=== PATIENT | male | born 1980 | race Caucasian/White ===

== ENCOUNTER → 2020-04-17 08:53 | Outpatient (BNVA) | payer OTHER, SELFPAY | PROVIDERS: PCP Nurse Practitioner; Referring Provider Nurse Practitioner; Visit Provider Nurse Practitioner Psychiatric/Mental Health | DX: Z76.89 Persons encountering health services in other specified circumstances (principal) ==

== ENCOUNTER → 2020-04-24 08:49 | Outpatient (BNVA) | payer OTHER, SELFPAY | PROVIDERS: Visit Provider Nurse Practitioner Psychiatric/Mental Health | DX: Z76.89 Persons encountering health services in other specified circumstances (principal) ==

== ENCOUNTER → 2020-05-01 08:46 | Outpatient (BNVA) | payer OTHER, SELFPAY | PROVIDERS: Visit Provider Nurse Practitioner Psychiatric/Mental Health | DX: F11.99 Opioid use, unspecified with unspecified opioid-induced disorder (principal); Z79.899 Other long term (current) drug therapy | CPT/HCPCS: 80305 ==

== ENCOUNTER 2020-05-13 08:57 | Outpatient (REF) | payer OTHER, SELFPAY | END 2020-05-13 08:58 | disposition home or self-care (01) | LOC: HO.LAB 08:57 | PROVIDERS: Visit Provider Internal Medicine | DX: Z20.828 Contact with and (suspected) exposure to other viral communicable diseases (principal) | CPT/HCPCS: 87635 ==

== ENCOUNTER → 2020-05-15 08:45 | Outpatient (BNVA) | payer OTHER, SELFPAY | PROVIDERS: Visit Provider Nurse Practitioner Psychiatric/Mental Health | DX: F11.20 Opioid dependence, uncomplicated (principal) | CPT/HCPCS: 80305 ==

== ENCOUNTER → 2020-05-29 08:42 | Outpatient (BNVA) | payer OTHER, SELFPAY | PROVIDERS: Visit Provider Nurse Practitioner Psychiatric/Mental Health | DX: F11.99 Opioid use, unspecified with unspecified opioid-induced disorder (principal) | CPT/HCPCS: 80305 ==

== ENCOUNTER → 2020-06-19 09:01 | Outpatient (BNVA) | payer OTHER, SELFPAY | PROVIDERS: Visit Provider Nurse Practitioner Psychiatric/Mental Health | DX: Z76.89 Persons encountering health services in other specified circumstances (principal) ==

== ENCOUNTER 2020-06-25 09:22 | Outpatient (REF) | payer OTHER, SELFPAY | END 2020-06-25 09:23 | disposition home or self-care (01) | LOC: HO.LAB 09:22 | PROVIDERS: PCP Nurse Practitioner Family; Visit Provider Internal Medicine | DX: Z20.828 Contact with and (suspected) exposure to other viral communicable diseases (principal) | CPT/HCPCS: C9803; U0003 ==

== ENCOUNTER → 2020-07-03 10:55 | Outpatient (BNVA) | payer OTHER, SELFPAY | PROVIDERS: Visit Provider Nurse Practitioner Psychiatric/Mental Health | DX: Z76.89 Persons encountering health services in other specified circumstances (principal) ==

== ENCOUNTER → 2020-07-17 10:29 | Outpatient (BNVA) | payer OTHER, SELFPAY | PROVIDERS: Visit Provider Nurse Practitioner Psychiatric/Mental Health | DX: Z76.89 Persons encountering health services in other specified circumstances (principal) ==

== ENCOUNTER → 2020-08-14 13:07 | Outpatient (BNVA) | payer OTHER, SELFPAY | PROVIDERS: Visit Provider Nurse Practitioner Psychiatric/Mental Health ==

== ENCOUNTER → 2020-08-28 13:04 | Outpatient (BNVA) | payer OTHER, SELFPAY | PROVIDERS: PCP Nurse Practitioner Family; Visit Provider Nurse Practitioner Psychiatric/Mental Health ==

== ENCOUNTER → 2020-09-18 13:05 | Outpatient (BNVA) | payer OTHER, SELFPAY | PROVIDERS: PCP Nurse Practitioner Family; Visit Provider Nurse Practitioner Psychiatric/Mental Health ==

== ENCOUNTER → 2020-10-09 08:47 | Outpatient (BNVA) | payer OTHER, SELFPAY | PROVIDERS: PCP Nurse Practitioner Family; Visit Provider Nurse Practitioner Psychiatric/Mental Health | DX: F11.21 Opioid dependence, in remission (principal) | CPT/HCPCS: 80305 ==

== ENCOUNTER → 2020-10-23 16:04 | Outpatient (BNVA) | payer OTHER, SELFPAY | PROVIDERS: PCP Nurse Practitioner Family; Visit Provider Nurse Practitioner Psychiatric/Mental Health | DX: Z51.81 Encounter for therapeutic drug level monitoring (principal); F11.21 Opioid dependence, in remission | CPT/HCPCS: 80305 ==

== ENCOUNTER 2020-11-13 13:40 | Emergency (ER) | payer OTHER, SELFPAY ==
--- NOTE | ~2020-11-13 | XR_ITS ---
EXAMINATION: XR HAND, RIGHT CLINICAL INFORMATION: Index finger foreign body. COMPARISON: None TECHNIQUE: Three views of the right hand. FINDINGS: There is a 7.7 x 4.9 cm plate-like metallic foreign body projected over the 2nd digit on the AP projections. On the lateral projection, there is a screw which appears to be penetrating/extending through the soft tissues into the base of the 2nd middle phalanx. On the lateral projection, the proximal aspect of the metallic plate abuts the palmar soft tissues at the level of the proximal phalanx, and soft tissue injury/penetration into the soft tissues cannot be excluded. The remainder of the bones appear unremarkable. Ulnar negative variance. XR/XR hand RT 2V IMPRESSION: 7.7 x 4.9 cm plate-like metallic foreign body projected over the 2nd digit. There is a screw penetrating through the soft tissues into the base of the 2nd middle phalanx. The plate proximally abuts the palmar soft tissues of the proximal digit, and extension into the soft tissue/soft tissue injury cannot be excluded. Please clinically correlate.
[2020-11-13 14:09] VITALS: BP 134/84; PULSE 82; RESP 16; TEMP 36.8; O2SAT 96; BMI 36.6
--- NOTE | 2020-11-13 14:28 | ED.EXTPRO ---
HPI - Extremity Problem General Chief complaint: Extremity Injury, Upper <NUHA Claros - Last Filed: 11/13/20 19:35> Stated complaint: HAND INJ <NUHA Claros Last Filed: 11/13/20 19:35> Time Seen by Provider: 11/13/20 14:17 <NUHA Claros Last Filed: 11/13/20 19:35> Source: patient <NUHA Claros Last Filed: 11/13/20 19:35> Mode of arrival: ambulatory <NUHA Claros Last Filed: 11/13/20 19:35> Limitations: no limitations <NUHA Claros Last Filed: 11/13/20 19:35> History of Present Illness HPI Narrative: Patient presents to ED for screw drilled into right index finger by accident. Patient was doing some work on the ceiling and accidently drilled the nail into his finger. Patient states no pain. Patient unknown when last time he had tetanus injection. <NUHA Claros Last Filed: 11/13/20 19:35> Related Data Home medications: Home Medications Medication Instructions Recorded Confirmed sertraline 100 mg tablet 100 mg PO DAILY 04/12/20 09/18/20 valsartan 80 mg tablet 80 mg PO DAILY 04/12/20 09/18/20 Previous Rx's Medication Instructions Recorded cephalexin 500 mg PO QID #28 cap 11/13/20 doxycycline hyclate 100 mg PO BID #14 cap 11/13/20 ibuprofen 400 mg PO Q6H PRN #28 tab 11/13/20 buprenorphine 2 mg-naloxone 0.5 mg 3 film BUCCAL DAILY 21 Days #63 ea 12/04/20 sublingual film <NUHA Claros Last Filed: 11/13/20 19:35> Allergies/Adverse reactions: Allergies Allergy/AdvReac Type Severity Reaction Status Date / Time No Known Allergies Allergy Verified 10/09/20 08:52 <NUHA Claros Last Filed: 11/13/20 19:35> Review of Systems Review of Systems: Yes all other systems are reviewed and are negative <NUHA Claros Last Filed: 11/13/20 19:35> Constitutional: Constitutional: Reports as per HPI and Reports no additional constitutional complaints <NUHA Claros Last Filed: 11/13/20 19:35> Eyes: Eyes: Reports as per HPI and Reports no additional eye complaints <NUHA Claros Last Filed: 11/13/20 19:35> ENT: Reports system reviewed and no additional complaints, except as documented and Reports as per HPI <NUHA Claros Last Filed: 11/13/20 19:35> Cardiovascular: Cardiovascular: Reports as per HPI and Reports no additional cardiovascular complaints <NUHA Claros Last Filed: 11/13/20 19:35> Respiratory: Respiratory: Reports as per HPI and Reports no additional respiratory complaints <NUHA Claros Last Filed: 11/13/20 19:35> Gastrointestinal: Gastrointestinal: Reports as per HPI and Reports no additional gastrointestinal complaints <NUHA Claros Last Filed: 11/13/20 19:35> Genitourinary: Genitourinary: Reports no additional male genitourinary complaints and Reports as per HPI <NUHA Claros Last Filed: 11/13/20 19:35> Musculoskeletal: Musculoskeletal: Reports no additional musculoskeletal complaints and Reports as per HPI <NUHA Claros Last Filed: 11/13/20 19:35> Comments: Grew in right index finger. <NUHA Claros Last Filed: 11/13/20 19:35> Neurologic: Reports system reviewed and no additional complaints, except as documented and Reports as per HPI <NUHA Claros Last Filed: 11/13/20 19:35> Psychiatric: Psychiatric: Reports no additional psychiatric complaints and Reports as per HPI <NUHA Claros Last Filed: 11/13/20 19:35> [facility] Past Medical History Medical History: Medical History (Updated 11/14/20 @ 00:00 by Birgit Ceja) Opioid use disorder <NUHA Claros Last Filed: 11/13/20 19:35> Surgical History: Surgical History History of removal of cyst <NUHA Claros Last Filed: 11/13/20 19:35> Family History Family History: Family History (Updated 04/12/20 @ 13:51 by LEONOR Ugarte) Mother No problems noted. Father No problems noted. Sister No problems noted. Sister No problems noted. <NUHA Claros - Last Filed: 11/13/20 19:35> Physical Exam Vital Signs: Vital Signs: Last Vital Signs Temp 98.2 F 11/13/20 14:09 Pulse 82 11/13/20 14:09 Resp 16 11/13/20 14:09 BP 134/84 11/13/20 14:09 Pulse Ox 96 11/13/20 14:09 Body Mass Index 36.6 <NUHA Claros Last Filed: 11/13/20 19:35> Vital Signs: Last Vital Signs Temp 98.2 F 11/13/20 14:09 Pulse 82 11/13/20 14:09 Resp 16 11/13/20 14:09 BP 134/84 11/13/20 14:09 Pulse Ox 96 11/13/20 14:09 Body Mass Index 36.6 <Armand Guthrie MD - Last Filed: 12/08/20 20:38> Const: General: cooperative, healthy appearing, comfortable and no acute distress <NUHA Claros Last Filed: 11/13/20 19:35> Orientation/consciousness: patient oriented x3 <NUHA Claros Last Filed: 11/13/20 19:35> HENMT: Head: Yes normal to inspection, Yes No palpable skull fracture present, Yes normocephalic and No atraumatic <NUHA lCaros Last Filed: 11/13/20 19:35> Eyes: General: appearance normal, both eyes and all related structures <NUHA Claros Last Filed: 11/13/20 19:35> Neck: Neck: Yes normal visual inspection, Yes full ROM, Yes no lymphadenopathy, Yes no meningeal signs, Yes trachea midline, Yes supple and No tender <NUHA Claros Last Filed: 11/13/20 19:35> Chest: Chest palpation & inspection: normal inspection of the chest and normal palpation of entire chest wall <NUHA Claros Last Filed: 11/13/20 19:35> Resp: Effort & Inspection: normal respiratory effort and able to speak in complete sentences <NUHA Claros Last Filed: 11/13/20 19:35> Auscultation: clear to auscultation bilaterally <NUHA Claros Last Filed: 11/13/20 19:35> Cardio: Jugular venous distension: no JVD <NUHA Claros Jayshree Last Filed: 11/13/20 19:35> Heart sounds: S1 normal heart sound present and S2 normal heart sound present <Hilario Shravan, PA Last Filed: 11/13/20 19:35> GI: Inspection: Yes normal to inspection and No abdominal wall ecchymosis <NUHA Claros Last Filed: 11/13/20 19:35> Palpation (GI): Soft to palpation, not firm, nontender, no guarding and not rigid <NUHA Claros Last Filed: 11/13/20 19:35> : General: No CVA tenderness and Yes no CVA tenderness <NUHA Claros Last Filed: 11/13/20 19:35> Back/Spine/Pelvis: Back: no CVA tenderness, No CVA tenderness and No back tenderness <NUHA Claros Last Filed: 11/13/20 19:35> Skin: General skin exam: no rashes or lesions noted and elasticity normal <Hilario Shravan, PA Last Filed: 11/13/20 19:35> Neuro: General: patient oriented x3, no meningeal signs and CN's II-XI intact bilaterally <Hilario Shravan, PA Last Filed: 11/13/20 19:35> Cranial nerves: Yes CN's II-XII intact bilaterally <NUHA Claros Last Filed: 11/13/20 19:35> Extrem: Other: Right index finger positive for screw in right index finger. <NUHA Claros Jayshree Last Filed: 11/13/20 19:35> Psych: Appearance: grossly normal, well kempt and not disheveled <NUHA Claros Last Filed: 11/13/20 19:35> Course Course Course Narrative: X-ray shows it is drilled drilled into base of 2nd finger phalanx base. Tetanus ordered and p.o. medication. Will contact orthopedic/hand surgeon to see function temp to pull screw due to it being drilled into the bone or if should go to the OR. <NUHA Claros - Last Filed: 11/13/20 19:35> I have reviewed the chart <Armand Guthrie MD - Last Filed: 12/08/20 20:38> Reevaluation(s) Reevaluation #1: Spoke with Dr. Menard of hand surgeon who states screw could be removed in the ER. After removal she recommends washout of wound and also 1 dose of IV antibiotic. She also recommend patient should be discharged with antibiotics. <NUHA Claros - Last Filed: 11/13/20 19:35> Reevaluation #2: Index finger anesthetized with 6 mL of lidocaine 2%. Digital block was done. Pliers were used to twist screw and a counter clockwise motion until it was loose enough to be pulled out. Angiocath was placed in normal saline syringes and placed directly into wound for washout. Then wound was cleaning with normal sterile saline and Betadine iodine. Patient ordered tetanus. Screw removal was successful. Patient will be given 1 dose of ceftriaxone and then discharged. <NUHA Claros - Last Filed: 11/13/20 19:35> MDM - Extremity (Nontraumatic) MDM Narrative Medical decision making narrative: Foreign body removal. <NUHA Claros - Last Filed: 11/13/20 19:35> Discharge Plan Discharge Clinical Impression: Foreign body finger <NUHA Claros - Last Filed: 11/13/20 19:35> Patient Disposition: Home, Self-Care <NUHA Claros - Last Filed: 11/13/20 19:35> Instructions: Soft Tissue Foreign Body (ED) <NUHA Claros - Last Filed: 11/13/20 19:35> Additional Instructions: Return to the ED immediately for redness, swelling, pitting edema, pus discharge, foul odor, development of red streak going down arm, fever, chills, bluish discoloration of fingertips, or any other concerning symptoms. Please call Dr. Menard tomorrow to schedule an appointment for next week. Take antibiotics as prescribed. 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 Patient started on antibiotics.) <NUHA Claros - Last Filed: 11/13/20 19:35> Interventions: ED Discharge Assessment Last Done: 11/13/20 17:17 <NUHA Claros - Last Filed: 11/13/20 19:35> Discharge Date/Time: 11/13/20 17:51 <NUHA Claros - Last Filed: 11/13/20 19:35> Print Language: Vietnamese <NUHA Claros - Last Filed: 11/13/20 19:35>
[2020-11-13] MEDS: Ibuprofen 800 MG TABLET PO (14:45)
[2020-11-13] MEDS: Diphth,Pertus(ACell),Tet Adult 0.5 ML SYRINGE IM (14:46)
[2020-11-13] MEDS: cefTRIAXone sodium 1 GM in 0.9 % Sodium Chloride 50 ML IV (16:38)
[2020-11-13] MEDS: Lidocaine HCl 2 % MPF 5 ML VIAL INFILTRATI ×2 (16:39)
== END 2020-11-13 17:51 | disposition home or self-care (01) ==
PROVIDERS: Emergency Provider Emergency Medicine; PCP Nurse Practitioner Family
DX: S61.240A Puncture wound with foreign body of right index finger without damage to nail, initial encounter (principal); M79.644 Pain in right finger(s); Y28.9XXA Contact with unspecified sharp object, undetermined intent, initial encounter; Y93.9 Activity, unspecified; Y92.009 Unspecified place in unspecified non-institutional (private) residence as the place of occurrence of the external cause; Y99.9 Unspecified external cause status; Z79.899 Other long term (current) drug therapy
CPT/HCPCS: 10120; 73120; 90471; 90715; 96360; 96361; 99284; J0696

== ENCOUNTER → 2020-12-04 15:54 | Outpatient (BNVA) | payer OTHER, SELFPAY | PROVIDERS: PCP Nurse Practitioner Family; Visit Provider Nurse Practitioner Psychiatric/Mental Health | DX: F11.21 Opioid dependence, in remission (principal) | CPT/HCPCS: 80305 ==

== ENCOUNTER → 2020-12-24 13:17 | Outpatient (BNVA) | payer OTHER, SELFPAY | PROVIDERS: Visit Provider Nurse Practitioner Psychiatric/Mental Health | DX: Z51.81 Encounter for therapeutic drug level monitoring (principal) | CPT/HCPCS: 80305 ==

== ENCOUNTER → 2021-01-08 13:24 | Outpatient (BNVA) | payer OTHER, SELFPAY | PROVIDERS: Visit Provider Nurse Practitioner Psychiatric/Mental Health | DX: F11.21 Opioid dependence, in remission (principal) | CPT/HCPCS: 80305 ==

== ENCOUNTER → 2021-02-05 12:05 | Outpatient (BNVA) | payer OTHER, SELFPAY | PROVIDERS: Visit Provider Nurse Practitioner Psychiatric/Mental Health | DX: F11.21 Opioid dependence, in remission (principal); Z51.81 Encounter for therapeutic drug level monitoring | CPT/HCPCS: 80305 ==

== ENCOUNTER → 2021-03-05 11:06 | Outpatient (BNVA) | payer OTHER, SELFPAY | PROVIDERS: Visit Provider Nurse Practitioner Psychiatric/Mental Health | DX: F11.21 Opioid dependence, in remission (principal); Z87.891 Personal history of nicotine dependence; Z51.81 Encounter for therapeutic drug level monitoring | CPT/HCPCS: 80305 ==

== ENCOUNTER → 2021-04-30 11:13 | Outpatient (BNVA) | payer OTHER, SELFPAY | PROVIDERS: Visit Provider Nurse Practitioner Psychiatric/Mental Health | DX: F11.21 Opioid dependence, in remission (principal) | CPT/HCPCS: 80305 ==

== ENCOUNTER → 2021-06-25 13:35 | Outpatient (BNVA) | payer OTHER, SELFPAY | PROVIDERS: Visit Provider Nurse Practitioner Psychiatric/Mental Health | DX: F11.21 Opioid dependence, in remission (principal); Z51.81 Encounter for therapeutic drug level monitoring; Z79.899 Other long term (current) drug therapy | CPT/HCPCS: 80305 ==

== ENCOUNTER → 2021-08-20 13:27 | Outpatient (BNVA) | payer OTHER, SELFPAY | PROVIDERS: Visit Provider Nurse Practitioner Psychiatric/Mental Health | DX: F11.20 Opioid dependence, uncomplicated (principal) | CPT/HCPCS: 80305 ==

== ENCOUNTER → 2021-10-15 13:52 | Outpatient (BNVA) | payer OTHER, SELFPAY | PROVIDERS: Visit Provider Nurse Practitioner Psychiatric/Mental Health | DX: F11.21 Opioid dependence, in remission (principal); Z51.81 Encounter for therapeutic drug level monitoring; Z79.899 Other long term (current) drug therapy | CPT/HCPCS: 80305 ==

== ENCOUNTER → 2021-12-10 09:51 | Outpatient (BNVA) | payer OTHER, SELFPAY | PROVIDERS: Visit Provider Nurse Practitioner Psychiatric/Mental Health | DX: Z51.81 Encounter for therapeutic drug level monitoring (principal); F11.21 Opioid dependence, in remission | CPT/HCPCS: 80305 ==

== ENCOUNTER → 2022-05-24 08:59 | Outpatient (BNVA) | payer OTHER, SELFPAY | PROVIDERS: PCP Nurse Practitioner Family; Visit Provider Nurse Practitioner Psychiatric/Mental Health | DX: F11.21 Opioid dependence, in remission (principal); Z51.81 Encounter for therapeutic drug level monitoring; Z79.899 Other long term (current) drug therapy | CPT/HCPCS: 80305 ==

== ENCOUNTER → 2022-08-23 08:52 | Outpatient (BNVA) | payer OTHER, SELFPAY | PROVIDERS: PCP Nurse Practitioner Family; Visit Provider Nurse Practitioner Psychiatric/Mental Health | DX: Z51.81 Encounter for therapeutic drug level monitoring (principal); F11.21 Opioid dependence, in remission | CPT/HCPCS: 80305 ==

== ENCOUNTER → 2022-11-08 09:07 | Outpatient (BNVA) | payer OTHER, SELFPAY | PROVIDERS: PCP Nurse Practitioner Family; Visit Provider Nurse Practitioner Psychiatric/Mental Health | DX: F11.20 Opioid dependence, uncomplicated (principal) | CPT/HCPCS: 80305 ==

== ENCOUNTER 2023-01-31 09:00 | Outpatient (AMB) | payer OTHER, SELFPAY ==
--- NOTE | 2023-01-31 09:02 | A.OFFVIS_ITS ---
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 Reports that he continues to do well with recovery, 3 year anniversary coming up in February. Reflecting on all of the positive things in his life that continue to motivate him towards recovery. Still engaged with therapy. Started a new job. Overall doing well. [facility] Surgical History History of removal of cyst Family History Mother No problems noted. Father No problems noted. Sister No problems noted. Sister No problems noted. Social History (Updated 01/08/21 @ 13:40 by Rea Goss CMA) Patient Tobacco Use Status: Former Tobacco user Review of Systems Const Reports as per HPI and Reports no additional complaints Physical Exam Vital Signs: Last Vital Signs Pulse 86 01/31/23 09:13 BP 136/84 01/31/23 09:13 Pulse Ox 95 01/31/23 09:13 Oxygen Delivery Method Room Air 01/31/23 09:13 Const General: cooperative Nutritional Appearance: average body habitus Orientation/consciousness: oriented to person and patient oriented x3 Limitations: no limitations Neuro General: oriented to person and patient oriented x3 Psych Appearance: grossly normal and well kempt Mental Status: mental status grossly normal Speech and movement: Normal speech and movement present Affect: normal affect Attitude: cooperative Thought process: Normal thought process present Thought content: Normal thought content present Insight: Good insight present (Psych) Results AMB 14 Panel Urine Drug Screen Urine Marijuana (THC) Negative Last Edit by Rhoda Hurd CMA on 01/31/23 09:21 Urine Cocaine Negative Last Edit by Rhoda Hurd CMA on 01/31/23 09:21 Urine Morphine Negative Last Edit by Rhoda Hurd CMA on 01/31/23 09:21 Urine Methamphetamine Negative Last Edit by Rhoda Hurd CMA on 01/31/23 09:21 Urine Amphetamine Negative Last Edit by Rhoda Hurd CMA on 01/31/23 09:2 1 Urine Benzodiazepine Negative Last Edit by Rhoda Hurd CMA on 01/31/23 09:21 Urine Barbiturates Negative Last Edit by Rhoda Hurd CMA on 01/31/23 09: 21 Urine Methadone Negative Last Edit by Rhoda Hurd CMA on 01/31/23 09:21 Urine Buprenorphine Positive Last Edit by Rhoda Hurd CMA on 01/31/23 09 :21 Urine Tricyclic Antidepressant Negative Last Edit by Rhoda Hurd CMA on 01/31/23 09:21 Urine MDMA Negative Last Edit by Rhoda Hurd CMA on 01/31/23 09:21 Urine Oxycodone Negative Last Edit by Rhoda Hurd CMA on 01/31/23 09:21 Urine Phencyclidine Negative Last Edit by Rhoda Hurd CMA on 01/31/23 09 :21 Urine Propoxyphene Negative Last Edit by Rhoda Hurd CMA on 01/31/23 09: 21 Results Reviewed Results Reviewed: Laboratory Last Values POC Urine Buprenorphine Positive 01/31/23 09:06 POC Urine Morphine Negative 01/31/23 09:06 POC Urine Oxycodone Negative 01/31/23 09:06 POC Urine Methadone Negative 01/31/23 09:06 POC Urine Propoxyphene Negative 01/31/23 09:06 POC Urine Barbiturates Negative 01/31/23 09:06 POC U Tricyclic Antidpr Negative 01/31/23 09:06 POC Urine PCP Negative 01/31/23 09:06 POC Ur Amphetamines Negative 01/31/23 09:06 POC Ur Methamphetamine Negative 01/31/23 09:06 POC Urine MDMA Negative 01/31/23 09:06 POC Ur Benzodiazepine Negative 01/31/23 09:06 POC Urine Cocaine Negative 01/31/23 09:06 POC Ur Marijuana (THC) Negative 01/31/23 09:06 Assessment & Plan Assessment & Plan (1) Opioid use disorder, severe, in sustained remission: Code(s): F11.21 - Opioid dependence, in remission Plan: * Continue Suboxone at current dose * Follow-up 3 months * Encouraged to call office with any questions or concerns prior to next appointment Orders: Orders Liver Panel Today Z79.899 - Other retirement (current) drug therapy AMB 14 Panel Urine Drug Screen Today Z51.81 - Encounter for therapeutic drug level monitoring Coding Level of Care Code Est Pt Level 3 (22869) Diagnoses Opioid use disorder, severe, in sustained remission F11.21
[2023-01-31 09:13] VITALS: BP 136/84; PULSE 86; O2SAT 95
== END 2023-01-31 09:39 | disposition home or self-care (01) ==
LOC: HO.HCC 09:01
PROVIDERS: PCP Nurse Practitioner Family; Visit Provider Nurse Practitioner Psychiatric/Mental Health
DX: F11.21 Opioid dependence, in remission (principal); Z51.81 Encounter for therapeutic drug level monitoring
CPT/HCPCS: 99213

== ENCOUNTER → 2023-01-31 09:00 | Outpatient (BNVA) | payer OTHER, SELFPAY | PROVIDERS: PCP Nurse Practitioner Family; Visit Provider Nurse Practitioner Psychiatric/Mental Health | DX: F11.21 Opioid dependence, in remission (principal); Z51.81 Encounter for therapeutic drug level monitoring; Z79.899 Other long term (current) drug therapy | CPT/HCPCS: 80305 ==

== ENCOUNTER 2023-04-19 15:44 | Outpatient (AMB) | payer OTHER, SELFPAY ==
--- NOTE | 2023-04-19 15:47 | MHC.OFFVIS ---
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 strong family supports. considering taper and eventual discontinuation of suboxone. Discussed methods including Sublocade as a method to d/c bupe [facility] Surgical History History of removal of cyst Family History Mother No problems noted. Father No problems noted. Sister No problems noted. Sister No problems noted. Social History (Updated 01/08/21 @ 13:40 by Rea Goss CMA) Patient Tobacco Use Status: Former Tobacco user Review of Systems Const Reports as per HPI and Reports no additional complaints Physical Exam Vital Signs: Last Vital Signs Pulse 74 04/19/23 15:55 BP 128/86 04/19/23 15:55 Pulse Ox 96 04/19/23 15:55 Oxygen Delivery Method Room Air 04/19/23 15:55 Const General: cooperative Nutritional Appearance: average body habitus Orientation/consciousness: oriented to person and patient oriented x3 Limitations: no limitations Neuro General: oriented to person and patient oriented x3 Psych Appearance: grossly normal and well kempt Mental Status: mental status grossly normal Speech and movement: Normal speech and movement present Affect: normal affect Attitude: cooperative Thought process: Normal thought process present Thought content: Normal thought content present Insight: Good insight present (Psych) Results AMB 14 Panel Urine Drug Screen Urine Marijuana (THC) Negative Last Edit by Rhoda Hurd CMA on 04/19/23 15:57 Urine Cocaine Negative Last Edit by Rhoda Hurd CMA on 04/19/23 15:57 Urine Morphine Negative Last Edit by Rhoda Hurd CMA on 04/19/23 15:57 Urine Methamphetamine Negative Last Edit by Rhoda Hurd CMA on 04/19/23 15:57 Urine Amphetamine Negative Last Edit by Rhoda Hurd CMA on 04/19/23 15:57 Urine Benzodiazepine Negative Last Edit by Rhoda Hurd CMA on 04/19/23 15:57 Urine Barbiturates Negative Last Edit by Rhoda Hurd CMA on 04/19/23 15:57 Urine Methadone Negative Last Edit by Rhoda Hurd CMA on 04/19/23 15:57 Urine Buprenorphine Positive Last Edit by Rhoda Hurd CMA on 04/19/23 15:57 Urine Tricyclic Antidepressant Negative Last Edit by Rhoda Hurd CMA on 04/19/23 15:57 Urine MDMA Negative Last Edit by Rhoda Hurd CMA on 04/19/23 15:57 Urine Oxycodone Negative Last Edit by Rhoda Hurd CMA on 04/19/23 15:57 Urine Phencyclidine Negative Last Edit by Rhoda Hurd CMA on 04/19/23 15:57 Urine Propoxyphene Negative Last Edit by Rhoda Hurd CMA on 04/19/23 15:57 Results Reviewed Results Reviewed: Laboratory Last Values POC Urine Buprenorphine Positive 04/19/23 15:56 POC Urine Morphine Negative 04/19/23 15:56 POC Urine Oxycodone Negative 04/19/23 15:56 POC Urine Methadone Negative 04/19/23 15:56 POC Urine Propoxyphene Negative 04/19/23 15:56 POC Urine Barbiturates Negative 04/19/23 15:56 POC U Tricyclic Antidpr Negative 04/19/23 15:56 POC Urine PCP Negative 04/19/23 15:56 POC Ur Amphetamines Negative 04/19/23 15:56 POC Ur Methamphetamine Negative 04/19/23 15:56 POC Urine MDMA Negative 04/19/23 15:56 POC Ur Benzodiazepine Negative 04/19/23 15:56 POC Urine Cocaine Negative 04/19/23 15:56 POC Ur Marijuana (THC) Negative 04/19/23 15:56 Assessment & Plan Assessment & Plan (1) Opioid use disorder, severe, in sustained remission: Code(s): F11.21 - Opioid dependence, in remission Plan: Continue Suboxone at current dose Follow-up 3 months Encouraged to call office with any questions or concerns prior to next appointment Orders: Orders AMB 14 Panel Urine Drug Screen 04/19/23 Z51.81 - Encounter for therapeutic drug level monitoring Medications: Discontinued buprenorphine-naloxone 2-0.5 mg (Suboxone) Discontinued Reason: Doctor's Order 2 film buccal DAILY 30 ea 2RF Coding Level of Care Code Est Pt Level 3 (51777) Diagnoses Opioid use disorder, severe, in sustained remission F11.21
[2023-04-19 15:55] VITALS: BP 128/86; PULSE 74; O2SAT 96
== END 2023-04-19 16:42 | disposition home or self-care (01) ==
PROVIDERS: PCP Nurse Practitioner Family; Visit Provider Nurse Practitioner Psychiatric/Mental Health
DX: F11.21 Opioid dependence, in remission (principal)
CPT/HCPCS: 99213

== ENCOUNTER → 2023-04-19 15:44 | Outpatient (BNVA) | payer OTHER, SELFPAY | PROVIDERS: PCP Nurse Practitioner Family; Visit Provider Nurse Practitioner Psychiatric/Mental Health | DX: F11.20 Opioid dependence, uncomplicated (principal) | CPT/HCPCS: 80305 ==

== ENCOUNTER 2023-04-23 10:22 | Emergency (ER) | payer OTHER, SELFPAY ==
[2023-04-23 10:31] VITALS: BP 153/84; PULSE 72; RESP 19; TEMP 36.6; O2SAT 98; BMI 43.6
--- NOTE | 2023-04-23 11:39 | ED.EXTPRO ---
HPI - Extremity Problem General Chief complaint: Extremity Injury, Upper Stated complaint: R arm pain Time Seen by Provider: 04/23/23 10:36 Source: patient Mode of arrival: ambulatory Limitations: no limitations History of Present Illness HPI Narrative: 43-year-old male with a history of opiate use disorder (former), [id number] here with complaints of right elbow pain for 1 week. Patient reports he was lifting a garage door and felt a popping sensation in the right elbow and has had subsequent pain since then. Patient reports he has been able to perform range of motion it was even able to play golf this week but still reports some discomfort in the right inner elbow area. He denies any associated weakness, numbness or tingling of the area. He denies any previous injury. Related Data Home Medications Medication Instructions Recorded Confirmed sertraline 100 mg tablet 100 mg PO DAILY 04/12/20 03/05/21 Previous Rx's Medication Instructions Recorded ibuprofen 400 mg tablet 400 mg PO Q6H PRN pain #28 tabs 11/13/20 clonidine HCl 0.1 mg tablet 0.1 mg PO BEDTIME PRN anxiety #30 10/15/21 tabs Allergies Allergy/AdvReac Type Severity Reaction Status Date / Time No Known Allergies Allergy Verified 04/23/23 10:30 Review of Systems Review of Systems: Yes all other systems are reviewed and are negative Constitutional: Constitutional: Reports no additional constitutional complaints, Denies body ache(s), Denies chills, Denies fever(s), Denies headache(s) and Denies weakness Eyes: Eyes: Reports no additional eye complaints and Denies change in vision ENT: Reports system reviewed and no additional complaints, except as documented, Denies dizziness, Denies headache(s), Denies nasal congestion, Denies nasal discharge and Denies neck pain Cardiovascular: Cardiovascular: Reports no additional cardiovascular complaints, Denies chest pain, Denies leg edema and Denies dyspnea Respiratory: Respiratory: Reports no additional respiratory complaints, Denies cough and Denies dyspnea Gastrointestinal: Gastrointestinal: Reports no additional gastrointestinal complaints, Denies abdominal pain, Denies diarrhea, Denies nausea and Denies vomiting Genitourinary: Genitourinary: Denies urinary incontinence Musculoskeletal: Musculoskeletal: Reports no additional musculoskeletal complaints, Denies back pain, Reports arthralgias, Denies joint swelling, Denies limited range of motion, Denies neck pain, Denies numbness and Denies tingling Integumentary/Breasts: Skin/Breast: Reports system reviewed and no additional complaints, except as docu and Denies rash Neurologic: Reports system reviewed and no additional complaints, except as documented, Denies Abnormal speech present, Denies dizziness, Denies headache(s), Denies numbness, Denies tingling and Denies weakness PMFSH Past Medical History Attestation statement: The following information was validated with the patient. Source: old records reviewed and nursing notes reviewed Surgical History History of removal of cyst Family History Family History Mother No problems noted. Father No problems noted. Sister No problems noted. Sister No problems noted. Social History Social History Patient Tobacco Use Status: Former Tobacco user Advance Directives: No Advance Directives Information Provided: Yes Physical Exam Vital Signs: Vital Signs: Last Vital Signs Temp 98 F 04/23/23 10:31 Pulse 72 04/23/23 10:31 Resp 19 04/23/23 10:31 BP 153/84 H 04/23/23 10:31 Pulse Ox 98 04/23/23 10:31 BMI result Body Mass Index 43.6 Const: General: cooperative, healthy appearing, comfortable and no acute distress Orientation/consciousness: patient oriented x3 Limitations: no limitations HEENT: Head: Yes normal to inspection Ears: hearing grossly normal bilaterally General nose exam: Normal external nose present Face and sinus: Yes normal facial exam Mouth: Normal oral and palatal mucosa present Throat: Yes posterior oropharynx normal Eyes: General: appearance normal, both eyes and all related structures Pupils: Equal, round and reactive pupils present Neck: Neck: Yes normal visual inspection Chest: Chest palpation & inspection: normal inspection of the chest Resp: Effort & Inspection: normal respiratory effort Auscultation: clear to auscultation bilaterally Cardio: Rate: regular rate Rhythm: regular rhythm Peripheral pulses: Peripheral pulses 2+ throughout GI: Inspection: Yes normal to inspection Palpation (GI): Soft to palpation and nontender Auscultation: normal bowel sounds Back/Spine/Pelvis: Thoracic/Lumbar Spine: thoracic and lumbar spine normal to inspection Skin: General skin exam: no rashes or lesions noted Neuro: General: patient oriented x3, no focal motor deficits and normal sensation to monofilament Cranial nerves: Yes Equal, round and reactive pupils present Cognition (Neuro): normal cognition Speech: No Abnormal speech present Gait exam (Neuro): Normal gait present Motor exam (neuro): 5/5 motor strength present throughout Extrem: Other: There is some mild tenderness over the right medial epicondyle. There is full active and passive range of motion of the extremity. There are normal radial and ulnar pulses distally. Normal sensation distally. General: Yes normal to inspection Course Course Course Narrative: x-ray shows no fracture. Likely strain. Recommend supportive care at home. Reviewed worrisome signs and symptoms of when to return to the emergency room. Comfortable plan for discharge home. Medical Decision Making Medical Decision Making MDM Narrative: 43-year-old male with a history of opiate use disorder (former), [id number] here with complaints of right elbow pain for 1 week. Patient reports he was lifting a garage door and felt a popping sensation in the right elbow and has had subsequent pain since then. Patient reports he has been able to perform range of motion it was even able to play golf this week but still reports some discomfort in the right inner elbow area. He denies any associated weakness, numbness or tingling of the area. He denies any previous injury. There is some mild tenderness over the right medial epicondyle. There is full active and passive range of motion of the extremity. There are normal radial and ulnar pulses distally. Normal sensation distally. Will obtain x-ray Differential Diagnosis Differential Diagnoses: The differential diagnosis associated with the presentation includes sprain, strain low concern for fracture, bicep tendon tear Admission/Observation Consideration of admission/observation: Escalation of care including admission/observation considered No evidence of vascular injury, dislocation or fracture requiring emergent orthopedic consultation and or intervention Independent Interpretation I performed an independent interpretation of an: Plain X-Ray Interpretation: I independently reviewed the x-ray and agreed with radiology repor Radiology Impression Discussion of test interpretation with radiology: I have reviewed the radiologist's reading. Radiologist Impression: [address] [address] XRay Report Signed Patient: Syed Rothman MR#: [id number] : 1980 Acct:[id number] Age/Sex: 43 / M ADM Date: 04/23/23 Loc: HO.ED Attending Dr: Ordering Physician: Shell Torres NP Date of Service: 04/23/23 Procedure(s): XR elbow RT 2V Accession Number(s): [id number] cc: DESIREE ROMERO; Shell Torres NP~ EXAMINATION: XR ELBOW, RIGHT CLINICAL INFORMATION: Trauma, pain COMPARISON: None available. TECHNIQUE: Three views of the right elbow. FINDINGS: No acute fracture or dislocation. Joint spaces are maintained. Soft tissues are unremarkable. No joint effusion. XR/XR elbow RT 2V IMPRESSION: No acute osseous abnormality. Tests considered The following testing was considered but not selected: clinical exam is not concern for vascular injury requiring CTA no complex fracture, dislocation or additional injury requiring MRI in the ER Prescription Management I considered prescription management with: Pain Medication Discharge Plan Discharge Clinical Impression: Muscle strain of right upper arm Patient Disposition: Home, Self-Care Instructions: Muscle Strain (ED) Additional Instructions: your x-ray shows no bony abnormality Please take Motrin 3 times a day for the next few days. Please avoid heavy lifting. Please apply ice to the area. If your continuing to have pain by the end of next week please follow-up with orthopedics outpatient. Prescriptions: No Action ibuprofen 400 mg tablet 400 mg PO Q6H PRN (Reason: pain) Qty: 28 0RF sertraline 100 mg tablet 100 mg PO DAILY clonidine HCl 0.1 mg tablet 0.1 mg PO BEDTIME PRN (Reason: anxiety) Qty: 30 1RF Ref[place]: [facility] [place]Provider Group] - 5 days (for continued symptoms )
== END 2023-04-23 12:29 | disposition home or self-care (01) ==
PROVIDERS: Emergency Provider Emergency Medicine Emergency Medical Services; PCP Nurse Practitioner Family
DX: S46.811A Strain of other muscles, fascia and tendons at shoulder and upper arm level, right arm, initial encounter (principal); X50.0XXA Overexertion from strenuous movement or load, initial encounter; Y93.89 Activity, other specified; Y92.015 Private garage of single-family (private) house as the place of occurrence of the external cause; Y99.9 Unspecified external cause status
CPT/HCPCS: 73070; 99282; 99283

== ENCOUNTER → 2023-06-13 12:53 | Outpatient (BNVA) | payer OTHER, SELFPAY | PROVIDERS: PCP Nurse Practitioner Family; Visit Provider Physician Assistant Surgical ==

== ENCOUNTER 2023-06-24 08:09 | Outpatient (AMB) | payer OTHER, SELFPAY ==
[2023-06-24 12:27] VITALS: BMI 45.0
--- NOTE | 2023-06-24 12:27 | MHC.OFFVISWM ---
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 Allergies No Known Allergies Allergy (Verified 06/24/23 12:28) Medication List - Last Reconciled 06/24/23 by Candelario Fuller MD buprenorphine-naloxone 2-0.5 mg (Suboxone) 1 film sublingual BID ibuprofen 400 mg PO Q6H PRN metformin 500 mg PO BID sertraline 100 mg PO DAILY valsartan-hydrochlorothiazide 160-12.5 mg 1 tab PO DAILY HPI 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 HPI Details Start time: 1pm, End time: 2pm ?I spent 50 minutes speaking with the patient on the phone plus an additional 10 minutes reviewing and updating records for a total of 60 minutes HPI Comments History of Present Illness Details Previous weight loss efforts: self diet and exercise Wakes up: 5am, Sleeps: 10pm Breakfast: 7am (donut) Lunch: 12pm (sandwich) Dinner: skips Snacks: several after lunch until sleep time (desserts, salty snacks) Exercise: has treadmill and [employer] at home Fluids: Coffee/Tea/juice/ETOH: none, soda: sugar free Red Bull PFSH Medical History (Updated 06/24/23 @ 12:30 by Candelario Fuller MD) Anxiety Depression Non-insulin dependent type 2 diabetes mellitus Hypertension Morbid obesity Surgical History History of removal of cyst Family History Mother No problems noted. Father No problems noted. Sister No problems noted. Sister No problems noted. Social History Patient Tobacco Use Status: Former Tobacco user Physical Exam Vital Signs: BMI result Body Mass Index 45.0 Assessment & Plan Assessment & Plan (1) Morbid obesity: Code(s): E66.01 - Morbid (severe) obesity due to excess calories Plan: 1.? Plan for lap sleeve gastrectomy. If diaphragmatic or ventral hernias are present at time of surgery, these will be repaired laparoscopically as well. Risks and complications were discussed in detail including possible conversion to an open procedure, anastomotic leak, bleeding requiring transfusion, small bowel obstruction, , DVT and pulmonary embolism, cardiac, or pulmonary complications, as on site property manager complications such as anastomotic ulcer, insufficient weight loss and vitamin deficiencies. I emphasized the importance of close follow-up, adherence to instructions and good communication. 2. Nutritional counseling. Start with 2 CELEBRATE REBUILD protein (buy at [facility] [employer]) shakes (ONE scoop EACH in 8oz low fat unsweetened almond milk each) at 6am-8am and 9am-11am, 2 protein bars (CELEBRATE protein bars, buy at [facility] [employer]) at 12pm-2pm and 3pm-5pm, dinner at 6pm (12 forks of protein and 12 forks of salad/vegetables) AND one more protein bar after dinner at 8pm-10pm. So you do 2 protein shakes, 3 protein bars and one meal per day. Meal to include lean meat (beef, fish, pork, turkey, chicken), or mongolian yogurt, or egg whites, or beans with a salad with olive oil and fruits (berries, pears, apples, kiwi). Avoid salt, breads, potatoes, rice, pasta, desserts. 3. Each shake would be drunk slowly, like coffee in a period of 2 hours. 4. Cut each bar in 4 pieces and eat each piece in 30min ?to make each bar last 2 hours. 5. I emphasized the importance of measuring accurately the food portion and measure it when serving the food in plate 6. The meal portions include 12 full-size forks of meat and 12 full-size forks of salad. You always eat the meat portion but you can replace up to 6 forks for salad/vegetables with rice, potatoes or pasta, or a fruit ?if you like. The less you do it the better weight loss will be. 7. One full-size fork is what it can be scooped on the fork without falling aside and not what can be bit with the fork. Use regular forks like those you find in a typical restaurant. 8.? Please send me weight measurements as soon as possible and then once a week. Always include your diet and exercise plan. 9. Start treadmill with an incline of 2.0 and speed of 3.0. Increase incline by 1 every 3 min to a max incline of 8.0, stay 3min at 8.0 and then return to 2.0 and repeat same steps until calorie goal is met. Goal is to burn 2000 calories per week on exercise, which means either 300 calories daily, or 400 calories 5 days per week, or 500 calories 4 days per week, or 650 calories 3 days per week. 10. Goal is to lose at least 1.5-2lbs per week 11. Goal to lose 10% of your weight before surgery, which is about 32lbs. Ultimate weight goal: 290lbs before surgery 12. Please follow the diet plan exactly without any change. If you don't like something about the plan or you feel hungry you need to communicate with me so I can help you revise the plan. You should not change the plan yourself. Orders: Orders Insulin Today E11.9 - Type 2 diabetes mellitus without complications, E66.01 - Morbid (severe) obesity due to excess calories, I10 - Essential (primary) hypertension Hemoglobin A1c Today E11.9 - Type 2 diabetes mellitus without complications, E66.01 - Morbid (severe) obesity due to excess calories, I10 - Essential (primary) hypertension Lipid Panel Today E11.9 - Type 2 diabetes mellitus without complications, E66.01 - Morbid (severe) obesity due to excess calories, I10 - Essential (primary) hypertension Vitamin A Today E11.9 - Type 2 diabetes mellitus without complications, E66.01 - Morbid (severe) obesity due to excess calories, I10 - Essential (primary) hypertension TSH reflex Free T4 Today E11.9 - Type 2 diabetes mellitus without complications, E66.01 - Morbid (severe) obesity due to excess calories, I10 - Essential (primary) hypertension Ferritin Today E11.9 - Type 2 diabetes mellitus without complications, E66.01 - Morbid (severe) obesity due to excess calories, I10 - Essential (primary) hypertension Vitamin D 25-OH Total Today E11.9 - Type 2 diabetes mellitus without complications, E66.01 - Morbid (severe) obesity due to excess calories, I10 - Essential (primary) hypertension ECG 12 lead EKG Today E11.9 - Type 2 diabetes mellitus without complications, E66.01 - Morbid (severe) obesity due to excess calories, I10 - Essential (primary) hypertension H Pylori Breath Test Today E11.9 - Type 2 diabetes mellitus without complications, E66.01 - Morbid (severe) obesity due to excess calories, I10 - Essential (primary) hypertension Complete Blood Count Auto Diff Today E11.9 - Type 2 diabetes mellitus without complications, E66.01 - Morbid (severe) obesity due to excess calories, I10 - Essential (primary) hypertension IRON PROFILE Today E11.9 - Type 2 diabetes mellitus without complications, E66.01 - Morbid (severe) obesity due to excess calories, I10 - Essential (primary) hypertension Comprehensive Met. Panel Today E11.9 - Type 2 diabetes mellitus without complications, E66.01 - Morbid (severe) obesity due to excess calories, I10 - Essential (primary) hypertension Vitamin B12 and Folate Today E11.9 - Type 2 diabetes mellitus without complications, E66.01 - Morbid (severe) obesity due to excess calories, I10 - Essential (primary) hypertension Zinc Today E11.9 - Type 2 diabetes mellitus without complications, E66.01 - Morbid (severe) obesity due to excess calories, I10 - Essential (primary) hypertension C Reactive Protein Today E11.9 - Type 2 diabetes mellitus without complications, E66.01 - Morbid (severe) obesity due to excess calories, I10 - Essential (primary) hypertension Vitamin B1 Today E11.9 - Type 2 diabetes mellitus without complications, E66.01 - Morbid (severe) obesity due to excess calories, I10 - Essential (primary) hypertension US abdomen comp w elastography Today E11.9 - Type 2 diabetes mellitus without complications, E66.01 - Morbid (severe) obesity due to excess calories, I10 - Essential (primary) hypertension XR chest 2V Today E11.9 - Type 2 diabetes mellitus without complications, E66.01 - Morbid (severe) obesity due to excess calories, I10 - Essential (primary) hypertension FL upper GI w air Today E11.9 - Type 2 diabetes mellitus without complications, E66.01 - Morbid (severe) obesity due to excess calories, I10 - Essential (primary) hypertension Referrals Behavioral Health Referral E11.9 - Type 2 diabetes mellitus without complications, E66.01 - Morbid (severe) obesity due to excess calories, I10 - Essential (primary) hypertension Nutrition/Dietitian Referral E11.9 - Type 2 diabetes mellitus without complications, E66.01 - Morbid (severe) obesity due to excess calories, I10 - Essential (primary) hypertension Telehealth Telehealth Location of provider rendering services: practice address Location of patient: address on file Patient Identification confirmed using: Name, : Yes Telehealth method: voice only Patient verbally consented to treatment: Yes Patient verbally consented to billing insurance company: Yes Patient informed of any privacy concerns related to visit: Yes Minutes spent on Phone/Video with Pt.: 60 Coding Level of Care Code Tele New Pt Level 5 (14591) Diagnoses Morbid obesity E66.01 Time Spent (min) 60
== END 2023-06-24 16:55 | disposition home or self-care (01) ==
LOC: HO.HBS 08:09
PROVIDERS: PCP Nurse Practitioner Family; Visit Provider Surgery
DX: E66.01 Morbid (severe) obesity due to excess calories (principal); Z68.42 Body mass index [BMI] 45.0-49.9, adult
CPT/HCPCS: 99205

== ENCOUNTER → 2023-06-24 08:09 | Outpatient (BNVA) | payer OTHER, SELFPAY | PROVIDERS: PCP Nurse Practitioner Family; Visit Provider Surgery ==

== ENCOUNTER 2023-07-07 13:20 | Outpatient (AMB) | payer OTHER, SELFPAY ==
--- NOTE | 2023-07-07 13:03 | MHC.AMNUTRGE ---
Intake Intake Visit Reasons: VIDEO Initial Nutrition SWL Allergies No Known Allergies Allergy (Verified 06/24/23 12:28) HPI Nutrition Presentation Details Noted pts body composition 182# of muscle mass Reason for consult elevated BMI Diet Assmnt Details Plan per Dr. Fuller 1 scoop of orgain in almond 1 scoop zone perfect protein bar dinner: protein and veg by dinner time is shakey and very hungry, irritable zone bar pt states he is making progress making changes. Reports having the program for accountability has been helpful. we talked about having accountability to himself pt speaks about sustainability of the plan and his concerns. Dietary counseling reduction Who buys your food self Who prepares/cooks your food self Meal frequency regular: breakfast (gas station red bull and donut ), lunch (Big [employer] sushi or pizza ), dinner and snacks (chips, pop-tarts ) Lifestyle Eating out 4 or more times/week Food frequency Fruit: occasionally, Vegetables: occasionally, Grains/pasta/breads/cereal (carbs): daily, Meats/poultry/fish (protein): daily, Meat substitutes/nuts/seeds/legumes: daily, Processed foods/meats: daily, Restaurants/fast foods: daily, Water: daily, Soda: never, Juice: never and Sports/energy drinks: daily (1 red bull daily ) Monitoring/Goals Nutrition problem monitoring total energy intake, level of knowledge/skill, total PRO intake, total CHO intake and weight Outcome progress progressing Learning/Education Readiness to learn excellent Stages of change action Educational materials provided Yes Most Recent Diabetes Results: No Data to Display [facility] Medical History (Updated 06/24/23 @ 12:30 by Candelario Fuller MD) Anxiety Depression Non-insulin dependent type 2 diabetes mellitus Hypertension Morbid obesity Surgical History History of removal of cyst Family History Mother No problems noted. Father No problems noted. Sister No problems noted. Sister No problems noted. Social History Patient Tobacco Use Status: Former Tobacco user Assessment & Plan Assessment & Plan (1) Morbid obesity: Code(s): E66.01 - Morbid (severe) obesity due to excess calories Plan complete classes and follow up after completion of online classes Patient Instructions: Spoke with surgeon , recommended 2 shakes with 2 scoops in each shake with fairlife milk, 3 bars, and 1 meal at very?minimum.?this will help prevent muscle mass loss Telehealth Telehealth Location of provider rendering services: practice address Location of patient: address on file Patient Identification confirmed using: Name, : Yes Telehealth method: voice only Patient verbally consented to treatment: Yes Patient verbally consented to billing insurance company: Yes Patient informed of any privacy concerns related to visit: Yes Minutes spent on Phone/Video with Pt.: 45 Coding Level of Care Code Nutr Indiv Intake (35857) Diagnoses Morbid obesity E66.01 Time Spent (min) 45
== END 2023-07-07 13:38 | disposition home or self-care (01) ==
LOC: HO.HBS 13:20
PROVIDERS: PCP Nurse Practitioner Family; Visit Provider Dietitian, Registered
DX: E66.01 Morbid (severe) obesity due to excess calories (principal)

== ENCOUNTER → 2023-07-07 13:20 | Outpatient (BNVA) | payer OTHER, SELFPAY | PROVIDERS: PCP Nurse Practitioner Family; Visit Provider Dietitian, Registered | DX: E66.01 Morbid (severe) obesity due to excess calories (principal); E11.9 Type 2 diabetes mellitus without complications; Z71.3 Dietary counseling and surveillance | CPT/HCPCS: 97802 ==

== ENCOUNTER 2023-07-08 07:49 | Outpatient (REF) | payer OTHER, SELFPAY ==
--- NOTE | ~2023-07-08 | XR_ITS ---
EXAMINATION: XR CHEST CLINICAL INFORMATION: Morbid (severe) obesity due to excess calories COMPARISON: None available. TECHNIQUE: 2 views of the chest were obtained. FINDINGS: The lungs are well expanded. No focal consolidation, interstitial pulmonary edema or pneumothorax. No pleural effusion. Minimal peribronchial thickening. No significant abnormality is noted involving the heart, mediastinum, bony thorax or soft tissues. XR/XR chest 2V IMPRESSION: No acute cardiopulmonary disease.
--- NOTE | 2023-07-08 07:54 | ECG_ITS ---
Test Reason : E66.01 Blood Pressure : / mmHG Vent. Rate : 065 BPM Atrial Rate : 065 BPM P-R Int : 190 ms QRS Dur : 106 ms QT Int : 418 ms P-R-T Axes : 019 -44 017 degrees QTc Int : 434 ms Normal sinus rhythm Left axis deviation Abnormal ECG When compared with ECG of 07-MAR-2020 10:36, Vent. rate has decreased BY 42 BPM Referred By: Candelario Fuller Electronically Signed By:REYNALDO SINGH MD
[2023-07-08 08:12] LABS: MANUAL DIFF FLAG NO
[2023-07-08 08:49] LABS: Basophils Absolute Auto 0.1 X10*3/uL (0.0-0.2); Basophils Percent Auto 1.4 % (0-2); Eosinophils Absolute Auto 0.1 X10*3/uL (0.0-0.4); Eosinophils Percent Auto 2.4 % (0-4); Hematocrit 42.6 % (42.0-52.0); Hemoglobin 14.6 g/dl (14.0-18.0); Imm Gran Abs Auto 0.02 X10*3/uL (0.00-0.03); Imm Gran Pct Auto 0.3 % (0.0-0.4); Lymphocytes Absolute Auto 1.8 X10*3/uL (1.2-4.9); Mean Corpuscular HGB Conc 34.3 g/dl (31.0-36.0); Mean Corpuscular Hemoglobin 29.1 pg (27.0-33.0); Mean Platelet Volume 10.1 fL (9.4-12.4); Monocytes Absolute Auto 0.4 X10*3/uL (0.1-1.2); Monocytes Percent Auto 6.3 % (2-11); Neutrophils Absolute Auto 3.5 x10*3/uL (2.0-8.3); Neutrophils Percent Auto 59.6 % (45-73); Platelet Count 214 X10*3/uL (160-400); Red Blood Count 5.01 X10*6/uL (4.60-5.80); Red Cell Distribution Width 12.2 % (11.0-16.0); White Blood Count 5.9 X10*3/uL (4.8-10.8)
[2023-07-08 08:59] LABS: Estimated Average Glucose 117 mg/dL; Hemoglobin A1c % 5.7 % (<6.0)
[2023-07-08 09:32] LABS: Alanine Aminotransferase 96 U/L (0-40); Albumin Level 4.3 g/dL (3.5-5.0); Alkaline Phosphatase 45 U/L (39-117); Anion Gap 13 (12-20); Aspartate Amino Transferase 43 U/L (5-37); Bilirubin Total 0.9 mg/dL (0.0-1.0); Blood Urea Nitrogen 20 mg/dL (9-16); C Reactive Protein 0.49 mg/dL (< or = 0.50); Carbon Dioxide 24 mmol/L (22-29); Chloride 106 mmol/L (96-108); Cholesterol 182 mg/dL (<200); Estimated Glomerular Filt Rate > 60; Glucose Random 105 mg/dL (60-115); HDL Cholesterol 34 mg/dL (>40); Iron 99 mcg/dL (45-160); LDL Cholesterol Calculated 126 mg/dL (<100); Percent Iron Saturation 34 % (15-50); Sodium 139 mmol/L (135-145); Total Iron Binding Capacity 293 mcg/dL (228-428); Total Protein 7.4 g/dL (6.5-8.0); Triglycerides 114 mg/dL (<150); Unsaturated Iron Binding 194 ug/dL
[2023-07-08 10:04] LABS: Ferritin 802 ng/mL (20-250); Insulin 23 uU/mL (2-29); TSH reflex Free T4 1.35 uIU/mL (0.32-4.0)
[2023-07-08 10:07] LABS: Folate 11.7 ng/mL (> or = 4.0); Vitamin B12 731 pg/mL (200-900)
[2023-07-13 12:23] LABS: Zinc 80 mcg/dL (60-130)
[2023-07-14 14:13] LABS: Vitamin B1 10 nmol/L (8-30)
[2023-07-15 19:58] LABS: Vitamin A 38 mcg/dL (38-98)
== END 2023-07-08 07:50 | disposition home or self-care (01) ==
LOC: HO.XRAY 07:49
PROVIDERS: PCP Nurse Practitioner Family; Visit Provider Surgery
DX: E66.01 Morbid (severe) obesity due to excess calories (principal); E11.9 Type 2 diabetes mellitus without complications; I10 Essential (primary) hypertension
CPT/HCPCS: 36415; 71046; 80053; 80061; 82306; 82607; 82728; 82746; 83036; 83525; 83540; 84425; 84443; 84590; 84630; 85025; 86140; 93005

== ENCOUNTER → 2023-07-08 07:54 | Outpatient (BNV) | payer OTHER, SELFPAY | PROVIDERS: PCP Nurse Practitioner Family; Visit Provider Internal Medicine Cardiovascular Disease | DX: R94.31 Abnormal electrocardiogram [ECG] [EKG] (principal) | CPT/HCPCS: 93010 ==

== ENCOUNTER 2023-07-13 09:31 | Outpatient (AMB) | payer OTHER, SELFPAY ==
--- NOTE | 2023-07-13 11:06 | MHC.OFFVISWM ---
Intake VS Expanded 07/13/23 11:13 Height 5 ft 11 in Weight 317 lb 6 oz BMI 44.3 Body Fat % 49.2 Body Fat Mass 156.2 Fat Free Mass 161.4 Visceral Fat Rating 27 Body Water % 36.7 Body Water Mass 116.5 Basal Metabolic Rate/Score 1,924 Intake Visit Reasons: TV Follow Up SWL - 1ST Allergies No Known Allergies Allergy (Verified 06/24/23 12:28) HPI TV Follow Up SWL - 1ST HPI Details Start time: 10.57am, End time: 11.20am ?I spent 18 minutes speaking with the patient on the phone plus an additional 5 minutes reviewing and updating records for a total of 23 minutes HPI Comments History of Present Illness Details Overall weight loss: 5lbs, or 1.55% TBWL Is doing 2 Orgain protein shakes (1 scoop each in 8oz almond milk), 2 Zone Perfect protein bars and one meal (12 forks of protein and 12 forks of salad or vegetables) Exercise: doing treadmill x2/wk and golfing [facility] Medical History (Updated 07/13/23 @ 11:03 by Candelario Fuller MD) Anxiety Depression Non-insulin dependent type 2 diabetes mellitus Hypertension Morbid obesity Surgical History History of removal of cyst Family History Mother No problems noted. Father No problems noted. Sister No problems noted. Sister No problems noted. Social History Patient Tobacco Use Status: Former Tobacco user Assessment & Plan Assessment & Plan (1) Morbid obesity: Code(s): E66.01 - Morbid (severe) obesity due to excess calories Plan: 1. Continue same nutritional plan of 2 Orgain protein shakes (1 scoop each in 8oz almond milk), 2 Zone Perfect protein bars and one meal (12 forks of protein and 12 forks of salad or vegetables) 2. Exercise: increase treadmill to 300 calories per work-out the days you don't golf and to 150 calories the day you golf 3. Continue to send me weight measurements weekly on Orders: Orders CA echo transthorac w con Today R94.31 - Abnormal electrocardiogram [ECG] [EKG] CA stress test Today R94.31 - Abnormal electrocardiogram [ECG] [EKG] Medications: New cholecalciferol (vitamin D3) 90-day supply 125 mcg PO DAILY 90 caps 0RF E55.9 - Vitamin D deficiency, unspecified Telehealth Telehealth Location of provider rendering services: practice address Location of patient: address on file Patient Identification confirmed using: Name, : Yes Telehealth method: voice only Patient verbally consented to treatment: Yes Patient verbally consented to billing insurance company: Yes Patient informed of any privacy concerns related to visit: Yes Minutes spent on Phone/Video with Pt.: 23 Coding Level of Care Code Tele Est Pt Level 3 (42007) Diagnoses Morbid obesity E66.01 Time Spent (min) 23
[2023-07-13 11:13] VITALS: BMI 44.3
== END 2023-07-13 11:20 | disposition home or self-care (01) ==
LOC: HO.HBS 09:32
PROVIDERS: PCP Nurse Practitioner Family; Visit Provider Surgery
DX: E66.01 Morbid (severe) obesity due to excess calories (principal)
CPT/HCPCS: 99213

== ENCOUNTER → 2023-07-13 09:31 | Outpatient (BNVA) | payer OTHER, SELFPAY | PROVIDERS: PCP Nurse Practitioner Family; Visit Provider Surgery ==

== ENCOUNTER 2023-07-25 15:59 | Outpatient (AMB) | payer OTHER, SELFPAY ==
--- NOTE | 2023-07-25 16:03 | A.OFFVISCC_ITS ---
Intake Vital Signs 07/25/23 16:10 BP 124/68 Blood Pressure Location Lt radial Position Sitting Pulse 78 Pulse Source Pulse Oximeter Pulse Oximetry (%) 96 Oxygen Delivery Method Room Air Intake Visit Reasons: mat visit Intake Note: the patient presents for a mat visit Sap Basis Administrator Required: No Allergies No Known Allergies Allergy (Verified 07/25/23 16:04) Do you need a note to return to daycare/school/sports/work: No HPI mat visit HPI Details Patient presents for follow up No issues related to medication or recovery in general shared that he has had the opportunity to speak on his story at a couple of e vents. continues to be engaged in therapy Was considering tapering and discontinuing his sertraline. After discussion, agreeable to keeping at 50mg for now [facility] Medical History (Updated 07/13/23 @ 11:03 by Candelario Fuller MD) Anxiety Depression Non-insulin dependent type 2 diabetes mellitus Hypertension Morbid obesity Surgical History History of removal of cyst Family History Mother No problems noted. Father No problems noted. Sister No problems noted. Sister No problems noted. Social History Patient Tobacco Use Status: Former Tobacco user Review of Systems Const Reports as per HPI and Reports no additional complaints Physical Exam Vital Signs: Last Vital Signs Pulse 78 07/25/23 16:10 BP 124/68 07/25/23 16:10 Pulse Ox 96 07/25/23 16:10 Oxygen Delivery Method Room Air 07/25/23 16:10 Const General: cooperative Orientation/consciousness: oriented to person and patient oriented x3 Limitations: no limitations Neuro General: oriented to person and patient oriented x3 Psych Appearance: grossly normal and well kempt Mental Status: mental status grossly normal Speech and movement: Normal speech and movement present Affect: normal affect Attitude: cooperative Thought process: Normal thought process present Thought content: Normal thought content present Insight: Good insight present (Psych) Assessment & Plan Assessment & Plan (1) Opioid use disorder, severe, in sustained remission: Code(s): F11.21 - Opioid dependence, in remission Plan: * Continue Suboxone at current dose * Follow-up 3 months * Encouraged to call office with any questions or concerns prior to next appointment Coding Level of Care Code Est Pt Level 3 (16272) Diagnoses Opioid use disorder, severe, in sustained remission F11.21
[2023-07-25 16:10] VITALS: BP 124/68; PULSE 78; O2SAT 96
== END 2023-07-25 17:03 | disposition home or self-care (01) ==
PROVIDERS: PCP Nurse Practitioner Family; Visit Provider Nurse Practitioner Psychiatric/Mental Health
DX: F11.21 Opioid dependence, in remission (principal)
CPT/HCPCS: 99213

== ENCOUNTER → 2023-07-25 15:59 | Outpatient (BNVA) | payer OTHER, SELFPAY | PROVIDERS: PCP Nurse Practitioner Family; Visit Provider Nurse Practitioner Psychiatric/Mental Health ==

== ENCOUNTER 2023-10-24 15:53 | Outpatient (AMB) | payer OTHER, SELFPAY ==
--- NOTE | 2023-10-24 16:08 | A.OFFVISCC_ITS ---
Intake Vital Signs 10/24/23 16:09 BP 165/80 H Blood Pressure Location Rt radial Position Sitting Respiration 19 Pulse 88 Pulse Source Pulse Oximeter Pulse Oximetry (%) 98 Intake Visit Reasons: mat visit Allergies No Known Allergies Allergy (Verified 07/25/23 16:04) HPI mat visit HPI Details Patient presents for follow up Seeing therapist Glenys via new office Sertraline prescription transferred to [facility] pharmacy Not moving forward with weightloss surgery has been working to lose weight with healthier eating No issues related to recovery per patient [facility] Medical History (Updated 07/13/23 @ 11:03 by Candelario Fuller MD) Anxiety Depression Non-insulin dependent type 2 diabetes mellitus Hypertension Morbid obesity Surgical History History of removal of cyst Family History Mother No problems noted. Father No problems noted. Sister No problems noted. Sister No problems noted. Social History Patient Tobacco Use Status: Former Tobacco user Review of Systems Const Reports as per HPI Physical Exam Vital Signs: Last Vital Signs Pulse 88 10/24/23 16:09 Resp 19 10/24/23 16:09 BP 165/80 H 10/24/23 16:09 Pulse Ox 98 10/24/23 16:09 Const General: cooperative Orientation/consciousness: oriented to person and patient oriented x3 Limitations: no limitations Neuro General: oriented to person and patient oriented x3 Psych Appearance: grossly normal and well kempt Mental Status: mental status grossly normal Speech and movement: Normal speech and movement present Affect: normal affect Attitude: cooperative Thought process: Normal thought process present Thought content: Normal thought content present Insight: Good insight present (Psych) Assessment & Plan Assessment & Plan (1) Opioid use disorder, severe, in sustained remission: Code(s): F11.21 - Opioid dependence, in remission Plan: * Continue Suboxone at current dose * Follow-up 3 months * Encouraged to call office with any questions or concerns prior to next appoi ntment Medications: Refilled buprenorphine-naloxone 2-0.5 mg (Suboxone) 1 film sublingual BID 60 ea 2RF Coding Level of Care Code Est Pt Level 3 (91611) Diagnoses Opioid use disorder, severe, in sustained remission F11.21
[2023-10-24 16:09] VITALS: BP 165/80; PULSE 88; RESP 19; O2SAT 98
== END 2023-10-24 16:43 | disposition home or self-care (01) ==
PROVIDERS: PCP Nurse Practitioner Family; Visit Provider Nurse Practitioner Psychiatric/Mental Health
DX: F11.21 Opioid dependence, in remission (principal)
CPT/HCPCS: 99213

== ENCOUNTER → 2023-10-24 15:53 | Outpatient (BNVA) | payer OTHER, SELFPAY | PROVIDERS: PCP Nurse Practitioner Family; Visit Provider Nurse Practitioner Psychiatric/Mental Health ==

== ENCOUNTER 2024-02-01 15:40 | Outpatient (AMB) | payer BC, SELFPAY ==
--- NOTE | 2024-02-01 15:58 | A.OFFVISCC_ITS ---
Intake Visit Reasons: mat visit Allergies No Known Allergies Allergy (Verified 07/25/23 16:04) HPI HPI mat visit: Details: Patient presents for follow up therapy continues, still working FT engaged in positive activities with friends and family no concerns related to suboxone sertraline dose still at 100mg PFSH Medical History (Updated 07/13/23 @ 11:03 by Candelario Fuller MD) Anxiety Depression Non-insulin dependent type 2 diabetes mellitus Hypertension Morbid obesity Surgical History History of removal of cyst Family History Mother No problems noted. Father No problems noted. Sister No problems noted. Sister No problems noted. Social History Patient Tobacco Use Status: Former Tobacco user Review of Systems Const Reports as per HPI and Reports no additional complaints Physical Exam Const General: cooperative Orientation/consciousness: oriented to person and patient oriented x3 Limitations: no limitations Neuro General: oriented to person and patient oriented x3 Psych Appearance: grossly normal and well kempt Mental Status: mental status grossly normal Speech and movement: Normal speech and movement present Affect: normal affect Attitude: cooperative Thought process: Normal thought process present Thought content: Normal thought content present Insight: Good insight present (Psych) Assessment & Plan Assessment & Plan (1) Opioid use disorder, severe, in sustained remission: Code(s): F11.21 - Opioid dependence, in remission Category: Medical Plan: * Continue Suboxone at current dose * Follow-up 3 months * Encouraged to call office with any questions or concerns prior to next appointment Medications: Refilled buprenorphine-naloxone 2-0.5 mg (Suboxone) 1 film sublingual BID 60 ea 2RF buprenorphine-naloxone 2-0.5 mg (Suboxone) 1 film sublingual BID 60 ea 2RF
== END 2024-02-01 16:44 | disposition home or self-care (01) ==
PROVIDERS: PCP Nurse Practitioner Family; Visit Provider Nurse Practitioner Psychiatric/Mental Health
DX: F11.21 Opioid dependence, in remission (principal)
CPT/HCPCS: 99213

== ENCOUNTER → 2024-02-01 15:40 | Outpatient (BNVA) | payer BC, SELFPAY | PROVIDERS: PCP Nurse Practitioner Family; Visit Provider Nurse Practitioner Psychiatric/Mental Health ==

== ENCOUNTER 2024-03-26 19:06 | Emergency (ER) | payer BC, SELFPAY ==
--- NOTE | ~2024-03-26 | CT_ITS ---
EXAMINATION: CT ABDOMEN AND PELVIS WITHOUT IV CONTRAST CLINICAL INFORMATION: Left flank pain COMPARISON: None TECHNIQUE: Multiple axial images were obtained from the superior aspect of the liver through the pubic symphysis without intravenous contrast. Images were evaluated on independent dedicated 3-D workstation and 3-D images were reconstructed with concurrent radiologist supervision and subsequently interpreted. Oral contrast was not administered. This CT examination was performed using dose optimization techniques as appropriate, variously including the following: *Automated exposure control *Adjustment of mA and/or kV according to patient size (this includes techniques or standardized protocols for targeted exams where dose is matched to indication/reason for exam; i.e. extremities or head) *Use of iterative reconstruction technique DLP: 1384 mGy-cm FINDINGS: LUNG BASES: The visualized lung bases are clear. CARDIOMEDIASTINUM: The visualized heart is normal in size without pericardial effusion. No coronary artery calcification. LIVER: Hepatic steatosis. GALLBLADDER: Collapsed. BILIARY SYSTEM: No intrahepatic or extrahepatic biliary dilation. PANCREAS: Atrophic. No contour deforming masses. SPLEEN: Normal in size. GENITOURINARY: No contour deforming masses. No perinephric fluid collection. No renal calculi. No hydroureteronephrosis. ADRENAL GLANDS: Unremarkable. REPRODUCTIVE: Prostate present. GASTROINTESTINAL: The visualized alimentary tract is normal in course. No evidence of obstruction. APPENDIX: The appendix is seen in its entirety and is unremarkable. PERITONEUM: No pneumoperitoneum. No intra-abdominal fluid collection. VASCULATURE: No abdominal aortic aneurysm. LYMPH NODES: No pathologically enlarged abdominal or pelvic lymph nodes. 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 The degenerative disc disease at L5-S1. No acute fractures or focal osseous lesions. CT/CT abdomen pelvis wo IV con IMPRESSION: No acute pathology of the abdomen or pelvis on this noncontrast study. Fleischner guidelines were followed. Electronically signed by: Emiliano Galeana DO 03/26/2024 09:23 PM EDT
[2024-03-26 19:23] VITALS: BP 150/97; PULSE 67; RESP 20; TEMP 35.9; O2SAT 96; BMI 26.0
--- NOTE | 2024-03-26 19:23 | ED_ITS ---
HPI - General Adult General Chief complaint: Abdominal Pain Stated complaint: left flank pain ? kidney stone Time Seen by Provider: 03/26/24 20:18 Source: patient and family Mode of arrival: ambulatory Limitations: no limitations History of Present Illness ED Provider: Dr. Rhiannon Gipson HPI narrative: Patient comes to the emergency room complaining of approximately 3 hours of very severe left-sided flank pain. Patient states it is on the left side of the flank and radiates towards the left groin area. Patient denies hematuria or dysuria. No fever chills. Patient states the pain is very intense. Patient has had kidney stones in the past and feels very similar. Patient requesting to not be medicated with narcotics as he is recovering from opiate addiction. Related Data Home Medications ?Medication ?Instructions ?Recorded ?Confirmed metformin 500 mg tablet 500 mg PO BID 06/24/23 06/24/23 valsartan 160 1 tab PO DAILY 06/24/23 06/24/23 mg-hydrochlorothiazide 12.5 mg tablet Previous Rx's ?Medication ?Instructions ?Recorded ibuprofen 400 mg tablet 400 mg PO Q6H PRN pain #28 tabs 11/13/20 cholecalciferol (vitamin D3) 125 125 mcg PO DAILY #90 caps 07/13/23 mcg (5,000 unit) capsule sertraline 100 mg tablet 100 mg PO DAILY #90 tabs 09/21/23 buprenorphine 2 mg-naloxone 0.5 mg 1 film sublingual BID #60 ea 02/01/24 sublingual film (Suboxone) ketorolac 10 mg tablet 10 mg PO Q8H PRN pain #10 tabs 03/27/24 ondansetron 4 mg disintegrating 4 mg PO Q6H PRN nausea and 03/27/24 tablet vomiting #14 tabs tamsulosin 0.4 mg capsule 0.4 mg PO DAILY #14 caps 03/27/24 Allergies Allergy/AdvReac Type Severity Reaction Status Date / Time No Known Allergies Allergy Verified 03/26/24 19:25 Review of Systems 2 Review of Systems: Constitutional : No Weight loss, No Fever, No Chills, No Night Sweats, No Fatigue, No Malaise ENT/Mouth : No Hearing loss, No Ear Pain, No Nasal Congestion, No Sinus Pain, No Hoarseness, No sore throat, No Rhinorrhea, No Swallowing Difficulty Eyes: No Eye Pain, No Swelling, No Redness, No Foreign Body, No Discharge, No Vision Changes Cardiovascular : No Chest Pain, No SOB, No Dyspnea on Exertion, No Orthopnea, No Edema, No Palpitations Respiratory : No Cough, No Sputum, No Wheezing, No Smoke Exposure, No Dyspnea Gastrointestinal : No Nausea, No Vomiting, No Diarrhea, No Constipation, No abdominal Pain, No Hematochezia, No Melena Genitourinary : no irregular bleeding, No Dysuria, No Urinary Frequency, No Hematuria, No Urinary Incontinence, No Urgency, complaining of severe left-sided Flank Pain, No Urinary Flow Changes, No Hesitancy Musculoskeletal : No joint pain, No Myalgias, No Joint Swelling Skin : No Skin Lesions, No rash Neuro : No Weakness, No Numbness, No Paresthesias, No Loss of Consciousness, No Dizziness, No Headache Psych : No Anxiety/Panic, No Depression, No SI/HI/AH/VH, No Social Issues, Heme/Lymph: No Bruising, No Bleeding,No Lymphadenopathy Endocrine : No Polyuria, No Polydipsia, No Temperature Intolerance [facility] Past Medical History Medical History (Updated 03/27/24 @ 00:26 by Rhiannon Gipson MD) Kidney stones Opioid use disorder, severe, in sustained remission Anxiety Depression Non-insulin dependent type 2 diabetes mellitus Hypertension Morbid obesity Surgical History History of removal of cyst Family History Family History Mother No problems noted. Father No problems noted. Sister No problems noted. Sister No problems noted. Social History Social History Patient Tobacco Use Status: Former Tobacco user Smoked in Last 30 Days: No Any prior treatment program specific to substance use: Yes ([facility] x 4 years) Advance Directives: No Advance Directives Information Provided: No Do you have a plan to hurt others: No Plan Physical Exam ED Vital Signs: Vital Signs - 24 hr 03/26/24 19:23 03/26/24 22:04 Temperature 96.7 F L 97.7 F Pulse Rate 67 69 Respiratory Rate 20 18 Blood Pressure 150/97 H 130/76 Pulse Oximetry 96 97 Oxygen Delivery Method Room Air Room Air BMI result Body Mass Index 26.0 Const Other: Appearance: Alert. Oriented X3. Patient looks very uncomfortable, pacing around the room Eyes: Pupils equal, round and reactive to light. ENT: Pharynx normal. Neck: Normal inspection. Neck supple. No lymph nodes noted. No crepitus CVS: Normal heart rate and rhythm. Pulses normal. Normal S1 and S2 Respiratory: No respiratory distress. Breath sounds normal. No Wheezing. No rales Abdomen: Soft and nontender. No rigidity. No distention. Positive CVA tenderness on the left Skin: Skin warm and dry. Normal skin color. Normal skin turgor. Extremities: No lower extremity edema. No Lacerations. No Rash Neuro: Oriented X 3. No motor deficit. No sensory deficit. Moving all extremities. No slurred speech. CN 2 through 12 grossly intact Psych: calm, cooperative, normal affect Course Course Course Narrative: This is an RME: Additional HPI, ROS, PE not included below will be deferred to primary provider. RME assessment and note performed by: Keesha Adkins PA-C This is a 59-teoi-fax-male, with a hx of diabetes, opioid use disorder on suboxone, and HTN, who presents to the ER with complaints of left flank pain since today. Hx of kidney stones. TTP over left flank Plan: Labs, EKG, CT abd/pelvis, CT abd/pelvis Medications Administered Discontinued Medications Generic Name Dose Route Start Last Admin Trade Name Freq PRN Reason Stop Dose Admin Buprenorphine/Naloxone 1 film 03/26/24 21:15 03/26/24 21:42 Buprenorphine/Naloxone 2/0.5mg Film SUBLINGUAL 03/26/24 21:16 1 film ONCE ONE Administration Ketorolac Tromethamine 30 mg 03/26/24 20:25 03/26/24 20:37 Ketorolac Tromethamine 30 Mg/Ml Vial IVPUSH 03/26/24 20:26 30 mg ONCE ONE Administration Ondansetron HCl 4 mg 03/26/24 19:25 03/26/24 19:27 Ondansetron Odt 4 Mg Tab.Rapdis TRANSLINGU 03/26/24 19:26 4 mg ONCE ONE Administration Ondansetron HCl 4 mg 03/26/24 20:25 03/26/24 20:37 Ondansetron Hcl 4 Mg/2 Ml Vial IVPUSH 03/26/24 20:26 4 mg ONCE ONE Administration Tamsulosin HCl 0.4 mg 03/26/24 20:25 03/26/24 20:38 Tamsulosin Hcl 0.4 Mg Capsule PO 03/26/24 20:26 0.4 mg ONCE ONE Administration Medical Decision Making Medical Decision Making [facility] Narrative: -after IV ketorolac, patient feeling much better. -my interpretation of CT scan of the abdomen: There is approximately a 1-2 mm stone in the bladder on the left. Patient likely passed a kidney stone. Although CT scan radiology report shows no acute pathology of the abdomen or pelvis. -patient did have blood in the urine, no UTI, findings more consistent with having passed a kidney stone. Patient may experience renal colic Patient's vitals stable, patient being discharged in a stable condition Differential Diagnosis Differential Diagnoses: The differential diagnosis associated with the presentation includes (Kidney stone, renal colic, pyelonephritis) Admission/Observation Consideration of admission/observation: Escalation of care including admission/observation considered (Given the patient's presentation and amount of pain, observation was considered) Lab Data [facility] Lab Attestation statement: I reviewed the patient's lab results. 03/26/24 19:47 03/26/24 19:47 Labs: Lab Results 03/26/24 03/26/24 Range/Units 19:47 22:43 WBC 9.1 (4.8-10.8) X10*3/uL RBC 5.13 (4.60-5.80) X10*6/uL Hgb 14.9 (14.0-18.0) g/dl Hct 43.4 (42.0-52.0) % MCV 84.6 (80.0-98.0) fL MCH 29.0 (27.0-33.0) pg MCHC 34.3 (31.0-36.0) g/dl RDW 13.1 (11.0-16.0) % Plt Count 201 (160-400) X10*3/uL MPV 9.2 L (9.4-12.4) fL Immature Gran % (Auto) 0.3 (0.0-0.4) % Neut % (Auto) 59.6 (45-73) % Lymph % (Auto) 30.1 (20-40) % Childress % (Auto) 6.6 (2-11) % Eos % (Auto) 2.5 (0-4) % Baso % (Auto) 0.9 (0-2) % Lymph # (Auto) 2.7 (1.2-4.9) X10*3/uL Childress # (Auto) 0.6 (0.1-1.2) X10*3/uL Eos # (Auto) 0.2 (0.0-0.4) X10*3/uL Baso # (Auto) 0.1 (0.0-0.2) X10*3/uL Abs Immat Gran (auto) 0.03 (0.00-0.03) X10*3/uL Absolute Neuts (auto) 5.4 (2.0-8.3) x10*3/uL Absolute Nucleated RBC 0.000 (0.0-0.012) X10*3/uL Nucleated RBC % (auto) 0.0 (0.0-0.2) /100WBC Sodium 144 (135-145) mmol/L Potassium 4.0 (3.3-5.1) mmol/L Chloride 107 (96-108) mmol/L Carbon Dioxide 26 (22-29) mmol/L Anion Gap 15 (12-20) BUN 13 (9-16) mg/dL Creatinine 0.95 (0.5-1.4) mg/dL Estim Creat Clear Calc 105.6 Estimated GFR > 60 Random Glucose 113 (60-115) mg/dL Calcium 9.7 D (8.4-10.2) mg/dL Total Bilirubin 1.0 (0.0-1.0) mg/dL Direct Bilirubin 0.3 (0.0-0.5) mg/dL AST 32 (5-37) U/L ALT 64 H (0-40) U/L Alkaline Phosphatase 57 (39-117) U/L Troponin I High Sens < 2.7 (<3.5-35.0) ng/L Total Protein 7.6 (6.5-8.0) g/dL Albumin 4.6 (3.5-5.0) g/dL Urine Color Dark Yellow Urine Appearance Cloudy Urine pH 6.0 (5.0-9.0) Ur Specific [place] 1.025 (1.005-1.025) Urine Protein 30 (1+) H (Neg-Trace) mg/dL Urine Glucose (UA) Negative (Negative) mg/dL Urine Ketones Trace (Negative) mg/dL Urine Blood Large (3+) H (Negative) Urine Nitrite Negative (Negative) Ur Leukocyte Esterase Trace H (Negative) Urine RBC >20 H (0-2) /HPF Urine WBC 0-5 (0-5) /HPF Ur Squamous Epith Cells 3-5 (0-2) /HPF Urine Bacteria None Seen (None Seen) Hyaline Casts 3-5 (0-2) /LPF Independent Interpretation I performed an independent interpretation of an: CT Scan Radiology Impression Discussion of test interpretation with radiology: I have reviewed the radiologist's reading. Radiologist Impression: FINDINGS: LUNG BASES: The visualized lung bases are clear. CARDIOMEDIASTINUM: The visualized heart is normal in size without pericardial effusion. No coronary artery calcification. LIVER: Hepatic steatosis. GALLBLADDER: Collapsed. BILIARY SYSTEM: No intrahepatic or extrahepatic biliary dilation. PANCREAS: Atrophic. No contour deforming masses. SPLEEN: Normal in size. GENITOURINARY: No contour deforming masses. No perinephric fluid collection. No renal calculi. No hydroureteronephrosis. ADRENAL GLANDS: Unremarkable. REPRODUCTIVE: Prostate present. GASTROINTESTINAL: The visualized alimentary tract is normal in course. No evidence of obstruction. APPENDIX: The appendix is seen in its entirety and is unremarkable. PERITONEUM: No pneumoperitoneum. No intra-abdominal fluid collection. VASCULATURE: No abdominal aortic aneurysm. LYMPH NODES: No pathologically enlarged abdominal or pelvic lymph nodes. 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 The degenerative disc disease at L5-S1. No acute fractures or focal osseous lesions. CT/CT abdomen pelvis wo IV con IMPRESSION: No acute pathology of the abdomen or pelvis on this noncontrast study. Fleischner guidelines were followed. Critical Care Time Critical Care Time Critical Care Time: Yes Total Critical Care Time: 60 Attestation: I have personally provided critical care time. Time includes review of lab data, radiology results, discussion with consultants, and monitoring for potential decompensation. Intervention performed as documented. Discharge Plan Discharge Clinical Impression: Kidney stone Patient Disposition: Home, Self-Care Instructions: Kidney Stones (ED) Additional Instructions: Please follow-up with your primary care physician tomorrow. If you have any worsening or new symptoms, please return to the emergency room or call 911 Prescriptions: New ketorolac 10 mg tablet 10 mg PO Q8H PRN (Reason: pain) Qty: 10 0RF Rx Instructions: Do not use this medication with other NSAIDs. tamsulosin 0.4 mg capsule 0.4 mg PO DAILY Qty: 14 0RF ondansetron 4 mg tablet,disintegrating 4 mg PO Q6H PRN (Reason: nausea and vomiting) Qty: 14 0RF No Action sertraline 100 mg tablet 100 mg PO DAILY Qty: 90 3RF ibuprofen 400 mg tablet 400 mg PO Q6H PRN (Reason: pain) Qty: 28 0RF valsartan-hydrochlorothiazide 160-12.5 mg tablet 1 tab PO DAILY metformin 500 mg tablet 500 mg PO BID cholecalciferol (vitamin D3) 125 mcg (5,000 unit) capsule 125 mcg PO DAILY Qty: 90 0RF Rx Instructions: 90-day supply buprenorphine-naloxone [Suboxone] 2-0.5 mg film 1 film sublingual BID Qty: 60 2RF Print Language: Maltese
--- NOTE | 2024-03-26 19:24 | ECG_ITS ---
Test Reason : FLANK PAIN Blood Pressure : / mmHG Vent. Rate : 065 BPM Atrial Rate : 065 BPM P-R Int : 204 ms QRS Dur : 098 ms QT Int : 434 ms P-R-T Axes : 040 -43 041 degrees QTc Int : 451 ms Normal sinus rhythm Left axis deviation Abnormal ECG When compared with ECG of 08-JUL-2023 07:49, No significant change was found Referred By: Keesha Adkins Electronically Signed By:DILSHAD ARCHER
[2024-03-26] MEDS: Ondansetron ODT 4 MG TAB.RAPDIS TRANSLINGU (19:27)
[2024-03-26 19:51] LABS: MANUAL DIFF FLAG NO
[2024-03-26 19:53] LABS: Basophils Absolute Auto 0.1 X10*3/uL (0.0-0.2); Basophils Percent Auto 0.9 % (0-2); Eosinophils Absolute Auto 0.2 X10*3/uL (0.0-0.4); Eosinophils Percent Auto 2.5 % (0-4); Hematocrit 43.4 % (42.0-52.0); Hemoglobin 14.9 g/dl (14.0-18.0); Imm Gran Abs Auto 0.03 X10*3/uL (0.00-0.03); Imm Gran Pct Auto 0.3 % (0.0-0.4); Lymphocytes Absolute Auto 2.7 X10*3/uL (1.2-4.9); Lymphocytes Percent Auto 30.1 % (20-40); Mean Corpuscular HGB Conc 34.3 g/dl (31.0-36.0); Mean Corpuscular Volume 84.6 fL (80.0-98.0); Mean Platelet Volume 9.2 fL (9.4-12.4); Monocytes Absolute Auto 0.6 X10*3/uL (0.1-1.2); Monocytes Percent Auto 6.6 % (2-11); Neutrophils Absolute Auto 5.4 x10*3/uL (2.0-8.3); Neutrophils Percent Auto 59.6 % (45-73); Platelet Count 201 X10*3/uL (160-400); Red Blood Count 5.13 X10*6/uL (4.60-5.80); Red Cell Distribution Width 13.1 % (11.0-16.0); White Blood Count 9.1 X10*3/uL (4.8-10.8)
[2024-03-26 20:07] LABS: Alanine Aminotransferase 64 U/L (0-40); Albumin Level 4.6 g/dL (3.5-5.0); Alkaline Phosphatase 57 U/L (39-117); Anion Gap 15 (12-20); Aspartate Amino Transferase 32 U/L (5-37); Bilirubin Direct 0.3 mg/dL (0.0-0.5); Blood Urea Nitrogen 13 mg/dL (9-16); Calcium 9.7 mg/dL (8.4-10.2); Carbon Dioxide 26 mmol/L (22-29); Chloride 107 mmol/L (96-108); Creatinine Clr Calc Pharmacy 105.6; Estimated Glomerular Filt Rate > 60; Glucose Random 113 mg/dL (60-115); Sodium 144 mmol/L (135-145); Total Protein 7.6 g/dL (6.5-8.0)
[2024-03-26 20:15] LABS: Troponin-I High Sensitivity < 2.7 ng/L (<3.5-35.0)
[2024-03-26] MEDS: Ketorolac Tromethamine 30 MG/ML VIAL IVPUSH (20:37)
[2024-03-26] MEDS: ondansetron HCL 4 MG/2 ML VIAL IVPUSH (20:37)
[2024-03-26] MEDS: Tamsulosin HCL 0.4 MG CAPSULE PO (20:38)
[2024-03-26] MEDS: Buprenorphine/Naloxone 2/0.5mg FILM 1 FILM SUBLINGUAL (21:42)
[2024-03-26 22:04] VITALS: BP 130/76; PULSE 69; RESP 18; TEMP 36.5; O2SAT 97
[2024-03-26 22:49] LABS: Appearance Urine Cloudy; Color Urine Dark Yellow; Glucose Urine UA Negative (Negative); Leukocyte Esterase Urine Trace (Negative); Nitrite Urine Negative (Negative); Specific Gravity - Urine 1.025 (1.005-1.025); UMIC TRIGGER UACC YES; Urine Blood Large (3+) (Negative); Urine Ketones Trace mg/dL (Negative); Urine Protein 30 (1+) mg/dL (Neg-Trace)
[2024-03-26 22:52] LABS: Bacteria Urine None Seen (None Seen); RBC Urine >20 /HPF (0-2); WBC Urine 0-5 /HPF (0-5)
[2024-03-27 00:48] VITALS: BP 130/76; PULSE 69; RESP 18; TEMP 36.5; O2SAT 97
== END 2024-03-27 00:49 | disposition home or self-care (01) ==
PROVIDERS: Physician Assistant Medical; Emergency Provider Emergency Medicine; PCP Nurse Practitioner Family
DX: N20.0 Calculus of kidney (principal); R10.9 Unspecified abdominal pain; R10.32 Left lower quadrant pain; R94.31 Abnormal electrocardiogram [ECG] [EKG]; F11.20 Opioid dependence, uncomplicated; Z79.899 Other long term (current) drug therapy
CPT/HCPCS: 36415; 74176; 80048; 80076; 81001; 84484; 85025; 93005; 96374; 96375; 99285; J1885; J2405

== ENCOUNTER → 2024-04-25 15:00 | Outpatient (BNVA) | payer BC, SELFPAY | PROVIDERS: PCP Nurse Practitioner Family; Visit Provider Nurse Practitioner Psychiatric/Mental Health ==

== ENCOUNTER 2024-07-25 14:57 | Outpatient (AMB) | payer BC, SELFPAY ==
--- NOTE | 2024-07-27 13:59 | A.OFFVISCC_ITS ---
Intake Visit Reasons: mat visit Allergies No Known Allergies Allergy (Verified 03/26/24 19:25) Medication List - Last Reconciled 07/25/24 by Cony Pitt CNP buprenorphine-naloxone 2-0.5 mg (Suboxone) 1 film sublingual TID metformin 500 mg PO BID sertraline 100 mg PO DAILY valsartan-hydrochlorothiazide 160-12.5 mg 1 tab PO DAILY HPI HPI mat visit: Details: Patient presents for follow up Currently prescribed suboxone 2mg TID Denies any issues with medication or recovery in general Recently completed sleep study no questions or concerns at this time Review of Systems Const Reports as per HPI and Reports no additional complaints Physical Exam Const General: cooperative Orientation/consciousness: oriented to person and patient oriented x3 Limitations: no limitations Neuro General: oriented to person and patient oriented x3 Psych Appearance: grossly normal and well kempt Mental Status: mental status grossly normal Speech and movement: Normal speech and movement present Affect: normal affect Attitude: cooperative Thought process: Normal thought process present Thought content: Normal thought content present Insight: Good insight present (Psych) [facility] Medical History (Updated 03/28/24 @ 00:00 by Birgit Ceja) Kidney stones Opioid use disorder, severe, in sustained remission Anxiety Depression Non-insulin dependent type 2 diabetes mellitus Hypertension Morbid obesity Surgical History History of removal of cyst Family History Mother No problems noted. Father No problems noted. Sister No problems noted. Sister No problems noted. Social History Patient Tobacco Use Status: Former Tobacco user Assessment & Plan Assessment & Plan (1) Opioid use disorder, severe, in sustained remission: Code(s): F11.21 - Opioid dependence, in remission Category: Medical Plan: * Continue Suboxone at current dose * Follow-up 3 months * Encouraged to call office with any questions or concerns prior to next appointment Medications: New bupropion HCl XL (Wellbutrin XL) 150 mg PO QAM
== END 2024-07-25 15:38 | disposition home or self-care (01) ==
PROVIDERS: PCP Nurse Practitioner Family; Visit Provider Nurse Practitioner Psychiatric/Mental Health
DX: F11.21 Opioid dependence, in remission (principal)
CPT/HCPCS: 99213

== ENCOUNTER 2024-10-19 15:22 | Outpatient (AMB) | payer BC, SELFPAY ==
--- NOTE | 2024-10-19 15:30 | MHC.OFFVIS ---
Vital Signs 10/19/24 15:47 Height 5 ft 11 in Weight 286 lb BMI 39.9 Pulse 103 H Pulse Source Pulse Oximeter Pulse Oximetry (%) 97 Oxygen Delivery Method Room Air Intake Visit Reasons: mat visit Allergies No Known Allergies Allergy (Verified 10/19/24 15:48) HPI HPI mat visit: Details: He has been taking Suboxone 2/.5 mg, 3 daily. He wants to get off. He is feeling well. He has been with program for 5 years. [facility] Medical History Kidney stones Opioid use disorder, severe, in sustained remission Anxiety Depression Non-insulin dependent type 2 diabetes mellitus Hypertension Morbid obesity Surgical History History of removal of cyst Family History Mother No problems noted. Father No problems noted. Sister No problems noted. Sister No problems noted. Social History Patient Tobacco Use Status: Former Tobacco user Review of Systems Const All systems reviewed & are unremarkable except as noted in HPI and below Physical Exam Vital Signs: Last Vital Signs Pulse 103 H 10/19/24 15:47 Pulse Ox 97 10/19/24 15:47 Oxygen Delivery Method Room Air 10/19/24 15:47 BMI result Body Mass Index 39.9 Const General: cooperative Assessment & Plan Assessment & Plan (1) Opioid use disorder, severe, in sustained remission: Comment: He has been doing well He has previously treated Hepatitis C. Code(s): F11.21 - Opioid dependence, in remission Category: Medical Plan: Suboxone same 2/.5 mg tid for one month with one refill. See in two months. Check labs including Hepatitis C viral load. He was given literature and will let us know if needs Brixadi. Orders: Orders Hepatitis A IgG Today F11.21 - Opioid dependence, in remission Hepatitis B Core Antibody Today F11.21 - Opioid dependence, in remission Hepatitis B Surface Antigen Today F11.21 - Opioid dependence, in remission Syphilis Screen Today F11.21 - Opioid dependence, in remission T Spot TB Today F11.21 - Opioid dependence, in remission Hepatitis C Viral Load Today F11.21 - Opioid dependence, in remission Hepatitis C Antibody Reflex Today - Opioid dependence, in remission Hepatitis B Surface Antibody Today - Opioid dependence, in remission HIV Ab/Ag Today - Opioid dependence, in remission Medications: New buprenorphine-naloxone 2-0.5 mg (Suboxone) place 1 strip/tab under (each) side of tongue 3 film sublingual DAILY 90 ea 1RF 30 days Coding Level of Care Code Est Pt Level 3 (00406) Diagnoses Opioid use disorder, severe, in sustained remission
[2024-10-19 15:47] VITALS: PULSE 103; O2SAT 97; BMI 39.9
== END 2024-10-19 16:09 | disposition home or self-care (01) ==
LOC: HO.HCC 15:22
PROVIDERS: PCP Nurse Practitioner Family; Visit Provider Internal Medicine
DX: F11.21 Opioid dependence, in remission (principal); Z51.81 Encounter for therapeutic drug level monitoring
CPT/HCPCS: 99213

== ENCOUNTER → 2024-10-19 15:22 | Outpatient (BNVA) | payer BC, SELFPAY | PROVIDERS: PCP Nurse Practitioner Family; Visit Provider Internal Medicine | DX: F11.21 Opioid dependence, in remission (principal) | CPT/HCPCS: 80307 ==

== ENCOUNTER 2024-12-19 15:00 | Outpatient (AMB) | payer BC, SELFPAY ==
--- NOTE | 2024-12-19 14:59 | A.OFFVIS_ITS ---
Vital Signs 12/19/24 14:59 Height 5 ft 11 in Intake Visit Reasons: Mat Allergies No Known Allergies Allergy (Verified 12/19/24 15:06) HPI Comments Details: He is doing well on current dosing. He has no complaints. [facility] Medical History Kidney stones Opioid use disorder, severe, in sustained remission Anxiety Depression Non-insulin dependent type 2 diabetes mellitus Hypertension Morbid obesity Surgical History History of removal of cyst Family History Mother No problems noted. Father No problems noted. Sister No problems noted. Sister No problems noted. Social History Patient Tobacco Use Status: Former Tobacco user Review of Systems Const All systems reviewed & are unremarkable except as noted in HPI and below Physical Exam Const General: cooperative Assessment & Plan Assessment & Plan (1) Opioid use disorder, severe, in sustained remission: Comment: He has been doing well He has previously treated Hepatitis C. Code(s): F11.21 - Opioid dependence, in remission Category: Medical Plan: Continue current Suboxone See as scheduled. Check Hepatitis C viral load at some point. Medications: New buprenorphine-naloxone 2-0.5 mg (Suboxone) place 1 strip/tab under (each) side of tongue 1 film sublingual TID 90 ea 1RF 30 days Coding Level of Care Code Est Pt Level 3 (10695) Diagnoses Opioid use disorder, severe, in sustained remission F11.21
== END 2024-12-19 15:54 | disposition home or self-care (01) ==
LOC: HO.HCC 15:00
PROVIDERS: PCP Nurse Practitioner Family; Visit Provider Internal Medicine
DX: F11.21 Opioid dependence, in remission (principal)
CPT/HCPCS: 99213

== ENCOUNTER → 2024-12-19 15:00 | Outpatient (BNVA) | payer BC, SELFPAY | PROVIDERS: PCP Nurse Practitioner Family; Visit Provider Internal Medicine | DX: Z13.89 Encounter for screening for other disorder (principal) ==

== ENCOUNTER 2025-02-18 15:51 | Outpatient (AMB) | payer BC, SELFPAY ==
--- NOTE | 2025-02-18 15:54 | A.OFFVIS_ITS ---
Vital Signs 02/18/25 16:00 Height 5 ft 11 in Weight 327 lb BMI 45.6 BP 132/80 Pulse 94 Pulse Oximetry (%) 97 Intake Visit Reasons: mat visit Allergies No Known Allergies Allergy (Verified 02/18/25 16:01) Medication List - Last Reconciled 02/18/25 by JEREMIAH Connelly buprenorphine-naloxone 2-0.5 mg (Suboxone) 1 film sublingual TID 30 days bupropion HCl XL (Wellbutrin XL) 150 mg PO QAM metformin 500 mg PO BID sertraline 100 mg PO DAILY 30 days valsartan-hydrochlorothiazide 160-12.5 mg 1 tab PO DAILY HPI Comments Details: A 45-year-old male presents for a follow-up visit r/t substance use disorder in sustained remission. Reports 5 years of sobriety and continues with buprenorphine-naloxone 2-0.5 mg TID, denies use of alcohol, smoking, marijuana use or other substances. Engaged in mental health services. 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 [facility] Medical History Kidney stones Opioid use disorder, severe, in sustained remission Anxiety Depression Non-insulin dependent type 2 diabetes mellitus Hypertension Morbid obesity Surgical History History of removal of cyst Family History Mother No problems noted. Father No problems noted. Sister No problems noted. Sister No problems noted. Social History Patient Tobacco Use Status: Former Tobacco user Review of Systems Const All systems reviewed & are unremarkable except as noted in HPI and below Physical Exam Vital Signs: Last Vital Signs Pulse 94 02/18/25 16:00 BP 132/80 02/18/25 16:00 Pulse Ox 97 02/18/25 16:00 BMI result Body Mass Index 45.6 Const General: cooperative Orientation/consciousness: patient oriented x3 Limitations: no limitations Neuro General: patient oriented x3 Psych Appearance: well kempt Mental Status: mental status grossly normal Speech and movement: Normal speech and movement present Affect: normal affect Attitude: cooperative Thought process: Normal thought process present Thought content: Normal thought content present Insight: Good insight present (Psych) Judgement: Good judgement present (Psych) Assessment & Plan Assessment & Plan (1) Opioid use disorder, severe, in sustained remission: Comment: He has been doing well He has previously treated Hepatitis C. Code(s): F11.21 - Opioid dependence, in remission Category: Medical Plan The plan of care is to continue with buprenorphine-naloxone 2-0.5 mg TID. Follow up in three months or sooner, if needed. Medications: Refilled buprenorphine-naloxone 2-0.5 mg (Suboxone) place 1 strip/tab under (each) side of tongue 1 film sublingual TID 90 ea 2RF 30 days Patient Instructions: - Continue with buprenorphine-naloxone 2mg-0.5 mg as prescribed. - Follow up in three months or sooner, if needed. - Call with questions, concerns, or to report side effects/new onset of symptoms to [facility]. - The patient verbalized understanding and agreed with plan of care. Coding Level of Care Code Est Pt Level 3 (06691) Diagnoses Opioid use disorder, severe, in sustained remission F11.21
--- OUTSIDE RECORDS SUMMARY | 2025-02-18 15:54 | XMS_ITS | Clinical Summary ---
Author Organization [facility] Address [address] [phone] Phone Care Team Providers Care Magento Web Developer Name Role Phone Pcp, Unknown Primary Care Provider Unavailabl e Social History Tobacco Use Types Packs/Day Years Used Date Smoking Tobacco: Never Assessed Sex and Gender Information Value Date Recorded Sex Assigned at Not on file Legal Sex Male 11:19 AM EDT Gender Identity Not on file Sexual Orientation Not on file Plan of Treatment Not on file Medical Devices Not on file Care Teams Magento Web Developer Relationship Specialty Start Date End Date Pcp, Unknown PCP - General 10/03/24 Additional Source Comments The information contained in this document represents components of the legal health record. It is not the complete legal health record.[facility]
[2025-02-18 16:00] VITALS: BP 132/80; PULSE 94; O2SAT 97; BMI 45.6
== END 2025-02-18 16:28 | disposition home or self-care (01) ==
LOC: HO.HCC 15:51
PROVIDERS: PCP Nurse Practitioner Family; Visit Provider Clinical Nurse Specialist Psychiatric/Mental Health
DX: F11.21 Opioid dependence, in remission (principal)
CPT/HCPCS: 99213

== ENCOUNTER 2025-05-20 15:39 | Outpatient (AMB) | payer BC, SELFPAY ==
[2025-05-20 16:11] VITALS: PULSE 105; O2SAT 96; BMI 46.9
--- NOTE | 2025-05-20 16:11 | MHC.OFFVIS ---
Vital Signs 05/20/25 16:11 Height 5 ft 11 in Weight 336 lb BMI 46.9 Pulse 105 H Pulse Oximetry (%) 96 Oxygen Delivery Method Room Air Intake Visit Reasons: MAT Allergies No Known Allergies Allergy (Verified 05/20/25 16:12) HPI HPI MAT: Details: History of Present Illness The patient is a 45-year-old male presenting with concerns about his current management of opioid use disorder. He is on a regimen of Suboxone, taking 6 mg daily in a 2/0.5 TID schedule, with occasional deviation to BID. The patient reports a decline in energy and libido since starting Suboxone and expresses interest in an alternative treatment due to these side effects. Despite feeling less concerned about relapse, he is anxious about withdrawal symptoms if a change in treatment occurs. Review of Systems - General: Denies other issues. - Neurologic: Reports decreased energy. - Genitourinary: Reports decreased libido. Physical Exam - Vitals- Stable. Results Plan Patient was informed and verbally consented to the use of an ambient scribe for clinic note documentation during this visit. 1. Opioid use, unspecified, uncomplicated F11.90 We discussed transitioning from Suboxone to an injectable treatment like Sublocade or Brixadi, with thorough consideration of the patient's fear of withdrawal symptoms. I prescribed Suboxone 2/0.3 for another month as the patient evaluates the new treatment options, aiming for a potential transition at the next visit. Continuing surveillance of withdrawal symptoms and maintaining relapse prevention are jacinto aspects of this plan. Discussion Notes I discussed with the patient the options for transitioning from Suboxone to an injectable treatment, such as Sublocade or Brixadi, to address his concerns about energy and libido. The patient was provided with literature about these medications to aid in informed decision-making. I explained the potential withdrawal symptoms associated with changing medications and the importance of monitoring for these and relapse risk. We agreed to continue the current Suboxone regimen for another month and reconvene at the next appointment to finalize the treatment choice. The patient was advised to report any changes in symptoms or concerns during this period. Medical Decision Making In evaluating the patient's opioid use disorder, the main issue at hand is his desire to transition from Suboxone due to side effects impacting his quality of life. The risks of withdrawal and the subsequent possibility of relapse were carefully weighed against the potential benefits of improved energy and libido with injectable treatments like Sublocade or Brixadi. The patient currently reports stability with regards to relapse but exhibits significant concern over withdrawal. As such, continued Suboxone treatment and patient education on alternatives comprise the immediate plan. My goal is to facilitate an informed transition to a more suitable treatment while vigilantly monitoring for any adverse effects. Patient Instructions - Continue taking Suboxone as prescribed. - Review the provided literature on Sublocade and Brixadi. - Monitor for any new or worsening symptoms. - Report any concerns immediately. - Follow up in one month to discuss treatment options. [facility] Medical History Kidney stones Opioid use disorder, severe, in sustained remission Anxiety Depression Non-insulin dependent type 2 diabetes mellitus Hypertension Morbid obesity Surgical History History of removal of cyst Family History Mother No problems noted. Father No problems noted. Sister No problems noted. Sister No problems noted. Social History Patient Tobacco Use Status: Former Tobacco user Physical Exam Vital Signs: Last Vital Signs Pulse 105 H 05/20/25 16:11 Pulse Ox 96 05/20/25 16:11 Oxygen Delivery Method Room Air 05/20/25 16:11 BMI result Body Mass Index 46.9 Assessment & Plan Assessment & Plan (1) Opioid use disorder, severe, in sustained remission: Comment: He has been doing well He has previously treated Hepatitis C. Code(s): F11.21 - Opioid dependence, in remission Category: Medical Plan as above Medications: New buprenorphine-naloxone 2-0.5 mg (Suboxone) place 1 strip/tab under (each) side of tongue 1 film sublingual TID 90 ea 0RF 30 days Coding Level of Care Code Est Pt Level 3 (96193) Diagnoses Opioid use disorder, severe, in sustained remission F11.21
--- OUTSIDE RECORDS SUMMARY | 2025-05-20 16:49 | XMS_ITS | Clinical Summary ---
Author Organization [facility] Address [address] [phone] Phone Care Team Providers Care Eyeglass Frame Truer Name Role Phone Pcp, Unknown Primary Care [...] Medical Devices Not on file Care Teams Eyeglass Frame Truer Relationship Specialty Start Date End Date Pcp, Unknown PCP - General 10/03/24 Additional Source Comments The information contained in this document represents components of the legal health record. It is not the complete legal health record.[facility]
== END 2025-05-20 16:46 | disposition home or self-care (01) ==
LOC: HO.HCC 15:39
PROVIDERS: PCP Nurse Practitioner Family; Visit Provider Internal Medicine
DX: F11.21 Opioid dependence, in remission (principal)
CPT/HCPCS: 99213

== ENCOUNTER 2025-06-19 15:35 | Outpatient (AMB) | payer BC, SELFPAY ==
--- NOTE | 2025-06-19 15:50 | MHC.OFFVIS ---
Vital Signs 06/19/25 15:51 BP 136/84 Pulse 88 Pulse Oximetry (%) 94 Intake Visit Reasons: MAT Allergies No Known Allergies Allergy (Verified 06/19/25 15:52) HPI Comments Details: History of Present Illness The patient is a 45 year old male presenting for follow-up for opioid use disorder. He is currently taking Suboxone three times a day and is stable on this regimen. He is anxious to switch to an injectable medication to facilitate tapering off opioids. The patient expressed a preference for Brixadi and is not interested in Sublocade. He denies constipation, depression, and suicidal or homicidal ideation. Results [facility] Medical History Kidney stones Opioid use disorder, severe, in sustained remission Anxiety Depression Non-insulin dependent type 2 diabetes mellitus Hypertension Morbid obesity Surgical History History of removal of cyst Family History Mother No problems noted. Father No problems noted. Sister No problems noted. Sister No problems noted. Social History Patient Tobacco Use Status: Former Tobacco user Review of Systems Narrative Review of Systems - Psychiatric: Reports anxiety to switch medications. Denies depression, suicidal ideation, or homicidal ideation. - Gastrointestinal: Denies constipation. Physical Exam Exam Exam: Physical Exam - Constitutional: Appears anxious. - Vitals: Stable. Vital Signs: Last Vital Signs Pulse 88 06/19/25 15:51 BP 136/84 06/19/25 15:51 Pulse Ox 94 06/19/25 15:51 Assessment & Plan Assessment & Plan (1) Opioid use disorder, severe, in sustained remission: Comment: He has been doing well He has previously treated Hepatitis C. Code(s): F11.21 - Opioid dependence, in remission Category: Medical Plan Plan Patient was informed and verbally consented to the use of an ambient scribe for clinic note documentation during this visit. 1. Opioid use, unspecified, uncomplicated F11.90 The patient is stable on his current regimen of Suboxone 2/0.5 mg taken three times a day, and a prescription for a 90-day supply with one refill was provided to bridge treatment. He wishes to transition to an injectable to help taper off opioids and has specifically chosen Brixadi over Sublocade. A prescription for Brixadi 64 mg, the lowest available dose, has been written. The patient was counseled extensively on what to expect with the injectable medication. He will follow up in the clinic for administration of the injection once it becomes available. Discussion Notes I had a discussion with the patient, Syed Rothman who consented to the use of [email or web address] for this visit's documentation. We discussed his desire to switch from oral Suboxone to an injectable formulation to assist in tapering off opioids. The patient expressed a preference for Brixadi and declined Sublocade. I counseled him extensively on what to expect with the Brixadi injection. I provided him with a bridging prescription for Suboxone 2/0.5 mg three times daily for 90 days with one refill. A new prescription for Brixadi 64 mg was also written. The patient is anxious to start and will follow up for the injection once it is available. Medical Decision Making The patient presents for management of opioid use disorder. He is clinically stable on his current medication, Suboxone 2/0.5 mg three times daily, with no reported constipation, depression, or suicidal/homicidal ideation. The patient is motivated to taper his medication and expressed a desire to transition to a long-acting injectable, specifically requesting Brixadi and declining Sublocade. To support his goal, a prescription for the lowest available dose of Brixadi, 64 mg, was provided. A bridging prescription for his current Suboxone was written to ensure continuity of care until the injectable medication is available for administration. The plan is to have him follow up in the clinic to receive the injection once available. Patient Instructions - Continue to take your Suboxone (2/0.5 mg) three times every day. A new 90-day prescription with one refill has been sent to your pharmacy. - We have also sent a prescription for a monthly shot called Brixadi (64 mg). This will help you manage your condition and slowly reduce your need for the medication over time. - You will need to make an appointment to come back to the clinic to get the shot once it is ready. Medications: New buprenorphine ER (Brixadi Monthly) 64 mg (0.18 mL) subcut Q28D 0.18 mL 5RF 28 days buprenorphine-naloxone 2-0.5 mg (Suboxone) place 1 strip/tab under (each) side of tongue 1 film sublingual TID 90 ea 1RF 30 days buprenorphine-naloxone 2-0.5 mg (Suboxone) place 1 strip/tab under (each) side of tongue 1 film sublingual TID 90 ea 1RF 30 days buprenorphine ER (Brixadi Monthly) 64 mg (0.18 mL) subcut Q28D 0.18 mL 5RF 28 days Coding Level of Care Code Est Pt Level 3 (20976) Diagnoses Opioid use disorder, severe, in sustained remission F11.21
[2025-06-19 15:51] VITALS: BP 136/84; PULSE 88; O2SAT 94
--- OUTSIDE RECORDS SUMMARY | 2025-06-19 18:32 | XMS_ITS | Clinical Summary ---
Author Organization [facility] Address [address] [phone] Phone Care Team Providers Care Senior Media Director Name Role Phone Pcp, Unknown Primary Care [...] Medical Devices Not on file Care Teams Senior Media Director Relationship Specialty Start Date End Date Pcp, Unknown PCP - General 10/03/24 Additional Source Comments The information contained in this document represents components of the legal health record. It is not the complete legal health record.[facility]
== END 2025-06-19 16:24 | disposition home or self-care (01) ==
LOC: HO.HCC 15:36
PROVIDERS: PCP Nurse Practitioner Family; Visit Provider Internal Medicine
DX: F11.21 Opioid dependence, in remission (principal)
CPT/HCPCS: 99213